=== PATIENT | male | born 1950 | race Caucasian/White ===

== ENCOUNTER 2021-06-06 11:01 | Inpatient (IN) | payer MEDICARE, MEDICAID ==
[~2021-06-06] VITALS: Ht 185.4 cm; Wt 111.1 kg
--- NOTE | 2021-06-06 11:43 | REP ---
INDICATION: R/O DVT COMPARISON: None. TECHNIQUE: Kay scale and color Doppler evaluation using linear high frequency transducer. FINDINGS: Ultrasound examination of the right lower extremity demonstrates thrombus extending from the proximal femoral vein through the popliteal vein and tibioperoneal trunk. The calf veins were not evaluated due to edema. Contralateral CFV is patent and normal. IMPRESSION: Extensive thrombus along the right femoral vein through tibioperoneal trunk. <Electronically signed by Jaziel Iniguez > 06/06/21 [id number]
[2021-06-06 12:46] LABS: BASO # 0.1 10^3/uL (0.0-0.2); BASO % 0.4 % (0.0-1.0); EOS # 0.1 10^3/uL (0.0-0.5); EOS % 0.5 % (0.0-3.0); HEMOGLOBIN 12.2 g/dl (13.5-17.5); LYMPH # 1.2 10^3/uL (1.5-5.0); LYMPH % 8.2 % (24.0-44.0); MEAN CORPUSCULAR HEMOGLOBIN 29.3 pg (27.0-33.0); MEAN CORPUSCULAR HGB CONC 32.1 g/dl (32.0-36.5); MEAN CORPUSCULAR VOLUME 91.1 fl (80.0-96.0); MONO # 0.9 10^3/uL (0.0-0.8); MONO % 6.2 % (2.0-8.0); NEUTROPHILS # 11.5 10^3/uL (1.5-8.5); NEUTROPHILS % 80.2 % (36.0-66.0); PLATELET COUNT, AUTOMATED 286 10^3/uL (150-450); RED BLOOD COUNT 4.17 10^6/uL (4.30-6.10); WHITE BLOOD COUNT 14.3 10^3/uL (4.0-10.0)
[2021-06-06 13:11] LABS: ERYTHROCYTE SEDIMENTATION RATE 83 mm/hr (0-20)
[2021-06-06] MEDS ORDERED: VANCOMYCIN HCL 2,000 MG in D5W 500 ML IV ONE (13:50)
--- NOTE | 2021-06-06 14:12 | REP ---
INDICATION: cough. COMPARISON: None. TECHNIQUE: Semi-erect AP chest x-ray. FINDINGS: Right hemidiaphragm is somewhat elevated. There is platelike atelectasis above it in the right lung base. Lung grider are otherwise clear. There are old healed rib fractures on the left and the right. Cardiomediastinal silhouette is unremarkable. Pulmonary vasculature is somewhat cephalized. The pleural angles are sharp. IMPRESSION: Cephalization. Old healed rib fractures. Elevated right hemidiaphragm and platelike atelectasis right base. <Electronically signed by Ryan Jose > 06/06/21 1930
[2021-06-06] MEDS ORDERED: GLUCAGON INJ 1MG VIAL SC PRN (14:15)
[2021-06-06] MEDS ORDERED: MAALOX 30 ML SUSP *UDC PO PRN (14:15)
[2021-06-06] MEDS ORDERED: DEXTROSE 50% 50 ML SYRINGE IV PRN (14:15)
[2021-06-06] MEDS ORDERED: GLUCOSE 4GM CHEW TABLET PO PRN (14:15)
[2021-06-06] MEDS ORDERED: ACETAMINOPHEN TAB 650MG DOSE (2X325MG) PO PRN (14:15)
[2021-06-06 14:24] LABS: BILIRUBIN,DIRECT 0.2 MG/DL (0.0-0.2); BILIRUBIN,TOTAL 0.4 MG/DL (0.2-1.0); C REACTIVE PROTEIN QUANTITATIV 21.7 MG/DL (0.00-0.30); CALCIUM LEVEL 8.4 MG/DL (8.8-10.2); CREATININE FOR GFR 1.33 MG/DL (0.70-1.30); GLOMERULAR FILTRATION RATE 56.1 (>42); POTASSIUM SERUM 4.1 MEQ/L (3.5-5.1); TOTAL PROTEIN 5.8 GM/DL (6.4-8.2)
[2021-06-06 14:28] LABS: RSV AMPLIFICATION NEGATIVE (NEGATIVE)
[2021-06-06] MEDS ORDERED: VANCOMYCIN HCL 1,000 MG, VIAL MATE ADAPTER 1 EACH in NS 250 ML IV ONE ×6 (14:35)
[2021-06-06] MEDS ORDERED: GUAI600T12 PO (14:56)
[2021-06-06] MEDS ORDERED: FLOM0.4C39 PO (14:56)
[2021-06-06] MEDS ORDERED: ACET-683 PO (14:56)
[2021-06-06] MEDS ORDERED: APAP325T4 PO (14:56)
[2021-06-06] MEDS ORDERED: ATOR1TAB21 PO (14:56)
[2021-06-06] MEDS ORDERED: LEVE1INJ5 SC (14:56)
[2021-06-06] MEDS ORDERED: BISA10SU27 PR (14:56)
[2021-06-06] MEDS ORDERED: DOXY100T PO (14:56)
[2021-06-06] MEDS ORDERED: GLIP1TAB11 PO (14:56)
[2021-06-06] MEDS ORDERED: MILKSUS3 PO (14:56)
[2021-06-06] MEDS ORDERED: OMEP-221 PO (14:56)
[2021-06-06] MEDS ORDERED: INVO300T PO (14:56)
[2021-06-06] MEDS ORDERED: JANU100T PO (14:56)
[2021-06-06] MEDS ORDERED: TRUL0.5I SC (14:56)
[2021-06-06] MEDS ORDERED: LORA-243 PO (14:56)
[2021-06-06] MEDS ORDERED: ASPI81TA26 PO (14:56)
[2021-06-06] MEDS ORDERED: FENO145T7 PO (14:56)
[2021-06-06] MEDS ORDERED: DOCU100C16 PO (14:56)
[2021-06-06] MEDS ORDERED: NAPR220C23 PO (14:56)
[2021-06-06] MEDS ORDERED: NOVOINJ3 SC (14:56)
[2021-06-06] MEDS ORDERED: GABA-1171 PO (14:56)
[2021-06-06] MEDS ORDERED: BISACODYL 10 MG SUPP PR PRN (15:00)
[2021-06-06] MEDS ORDERED: MOM 30ML SUSPENSION UDC PO PRN (15:00)
--- NOTE | 2021-06-06 15:15 | HPEPDOC ---
[facility] Medical History & Physical Date of Admission Jun 06, 2021 Date of Service: Jun 06, 2021 Primary Care Physician: BEVERLY CUNNINGHAM DO Attending Physician: BONI RUIZ DO History and Physical CHIEF COMPLAINT: Right leg swelling and redness HISTORY OF PRESENT ILLNESS: Patient is a 71-year-old male who presented to the emergency department from [facility]. Patient arrived at [facility] yesterday from [facility] in [place], [place]. Patient has been dealing with some right leg swelling and redness that was initially diagnosed with cellulitis. Patient had been on doxycycline which was not helping with the redness. Patient started having a fever last night and the redness started to spread causing concern. Patient was sent to the emergency department in order to work-up possibility of either DVT or cellulitis. Patient was found to have a DVT but also had an elevated white count so the decision was made to admit the patient for overnight observation. PAST MEDICAL HISTORY: 1. Type 2 diabetes mellitus. 2. BPH. 3. Hyperlipidemia. 4. 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 SOCIAL HISTORY: Patient lives now at [facility] intermediate [facility]. Patient used to drink alcohol but no longer does. Patient denies smoking or illicit drug use FAMILY HISTORY: Patient states diabetes runs in his family ALLERGIES: Please see below. REVIEW OF SYSTEMS: General: Patient reports fevers last night HEENT: Patient denies headaches Cardiovascular: Patient denies chest pain Respiratory: Patient denies shortness of breath, cough GI: Patient denies abdominal pain, nausea, vomiting, diarrhea : Patient denies increased frequency or pain with urination Extremities: Patient reports pain, redness, and swelling of the right lower extremity Neurological: Patient denies numbness or tingling in legs Skin: Patient denies any new rashes or lesions. Hematologic: Patient denies any easy bruising. Lymphatic: Patient denies any lumps lumps or bumps in neck, axilla, or groin HOME MEDICATIONS: Please see below. PHYSICAL EXAMINATION: VITAL SIGNS: Temperature 98.6, pulse 85, respiratory rate 19, blood pressure 115/65, pulse oximetry 94% on room air. General: Alert and oriented male patient who was laying on the stretcher when I walked into the room. Patient did not appear to be in any acute distress. HEENT: Normocephalic, atraumatic, moist mucous membranes. Neck: No lymphadenopathy or thyromegaly Cardiac: Regular rate and rhythm, no murmurs, normal S1, normal S2 Pulm: Clear to auscultation bilaterally. No wheezes, rhonchi, rales Abd: Nondistended, nontender to palpation, normal bowel sounds Ext: Redness and swelling present about the right ankle, foot, and to the mid peter. There is heat coming from this redness. Patient does have 2/4 pulses in the dorsalis pedis and posterior tibial pulses bilaterally. This area of redness is tender. Neuro: Patient is able to move all 4 extremities on command. Skin: Area of redness as described above, no other areas of rashes or lesions. LABORATORY DATA: See below. IMAGING: Duplex ultrasound of the lower right extremity was performed on 06/06/2021 is reported to show extensive thrombus along the right femoral vein through the tibioperoneal trunk. A chest x-ray performed on 06/06/2021 is reported to show cephalization, old healed rib fractures, elevated right hemidiaphragm with platelike atelectasis at right base MICROBIOLOGY: Please see below. ASSESSMENT: Patient is a 71-year-old male who presents to the hospital from [facility] with right leg swelling, pain, and redness who was being treated for cellulitis outpatient who had a fever and was found to have a DVT . PLAN: 1. Right lower extremity deep vein thrombosis. It appears that the patient's redness may be secondary to the DVT. Patient was started on Eliquis 10 mg twice daily. Patient does have good pulses on bilateral lower extremities. At this time we will continue to monitor the patient. Patient is not short of breath nor is he tachycardic at this time so do not believe he has a pulmonary embolus I do not believe CT angiogram of the chest is warranted at this time. If the patient does become short of breath, it appears the patient does have chronic kidney disease and we will have to possibly do a VQ scan. 2. Right lower extremity cellulitis. I believe the redness is more likely secondary to the DVT however, patient did have a fever. DVT can cause a fever however, we will start vancomycin with pharmacy to dose at this time. Depending on the patient's clinical response tomorrow, patient may be able to be [facility] with oral antibiotics as well as Eliquis. 3. Type 2 diabetes. Patient will continue his home basal insulin and he will be placed on a sliding scale. 4. Elevated troponin. Patient does not complain of any chest pain and EKG did not show any acute ischemic changes. [id number] troponin in the emergency department was 0.04. I have ordered repeat troponins to be done at 6-hour intervals with repeat EKGs. No old EKG was available for comparison. 5. BPH. We will continue the patient's home medications 6. BLADE/CKD. Patient's creatinine is slightly elevated. We will continue to monitor this. Due to the patient's diabetes he may have chronic kidney disease however, I do not have any previous labs to compare this to. We will avoid nephrotoxic agents at this time. 7. Hyperlipidemia. We will continue to hold medications. 8. DVT prophylaxis: Patient currently has a DVT and will be started on full anticoagulation with Eliquis. 9. CODE STATUS: Patient has a medical orders for life-sustaining treatment form signed for DO NOT RESUSCITATE/DO NOT INTUBATE. Disposition: Patient will be placed under observation on the medical surgical floor for his DVT. Patient could be ready for discharge tomorrow however, since he is a intermediate home patient he will most likely not be able to be discharged until Wednesday. Vital Signs Vital Signs Date Time Temp Pulse Resp B/P (MAP) Pulse Ox O2 Delivery O2 Flow Rate FiO2 06/06/21 11:21 98.6 85 19 115/65 (82) 94 Room Air Laboratory Data Labs 24H Laboratory Tests 2 06/06/21 12:21: Immature Granulocyte % (Auto) 4.5H, Neutrophils (%) (Auto) 80.2H, Lymphocytes (%) (Auto) 8.2L, Monocytes (%) (Auto) 6.2, Eosinophils (%) (Auto) 0.5, Basophils (%) (Auto) 0.4, Neutrophils # (Auto) 11.5H, Lymphocytes # (Auto) 1.2L, Monocytes # (Auto) 0.9H, Eosinophils # (Auto) 0.1, Basophils # (Auto) 0.1, Nucleated Red Blood Cells % (auto) 0.0, Erythrocyte Sedimentation Rate 83H, Lactic Acid Level 1.5 06/06/21 13:30: Anion Gap 9, Glomerular Filtration Rate 56.1, Calcium Level 8.4L, Total Bilirubin 0.4, Direct Bilirubin 0.2, Aspartate Amino Transf (AST/SGOT) 23, Alanine Aminotransferase (ALT/SGPT) 20, Alkaline Phosphatase 65, C-Reactive Protein, Quantitative 21.70H, Total Protein 5.8L, Albumin 2.0L, Albumin/Globulin Ratio 0.5, Coronavirus (COVID-19)(PCR) NEGATIVE, Influenza Type A (RT-PCR) NEGATIVE, Influenza Type B (RT-PCR) NEGATIVE, Respiratory Syncytial Virus (PCR) NEGATIVE 06/06/21 14:31: POC Troponin I (Misc) 0.04 CBC/BMP Laboratory Tests 06/06/21 12:21 06/06/21 13:30 Microbiology Microbiology 06/06/21 Blood Culture, Received Pending 06/06/21 Blood Culture, Received Pending Home Medications Scheduled Acetaminophen (Acetaminophen) 500 Mg Tablet, 1,000 MG PO BID 0800, 1600 Aspirin (Aspirin EC) 81 Mg Tablet.dr, 81 MG PO DAILY Atorvastatin Calcium (Atorvastatin Calcium) 20 Mg Tablet, 20 MG PO QHS Canagliflozin (Invokana) 300 Mg Tablet, 300 MG PO DAILY Docusate Sodium (Docusate Sodium) 100 Mg Capsule, 100 MG PO DAILY Doxycycline Hyclate (Doxycycline Hyclate) 100 Mg Tablet, 100 MG PO BID Dulaglutide (Trulicity) 1.5 Mg/0.5 Ml Pen.injctr, 1.5 MG SC 1XWK TUES Fenofibrate Nanocrystallized (Fenofibrate) 145 Mg Tablet, 145 MG PO DAILY Gabapentin (Gabapentin) 100 Mg Capsule, 100 MG PO QHS Glipizide (Glipizide Xl) 10 Mg Tab.er.24, 10 MG PO BID 0800, 1600 Guaifenesin (Mucus Relief ER) 600 Mg Tab.er.12h, 600 MG PO BID Insulin Aspart (Novolog Flexpen) 100 Unit/1 Ml Insuln.pen, 1 DOSE SC QID 0700, 1100, 1600, 2000 Insulin Detemir (Levemir Flextouch) 100 Unit/1 Ml Insuln.pen, 50 UNIT SC DAILY @ 1700 Insulin Detemir (Levemir Flextouch) 100 Unit/1 Ml Insuln.pen, 60 UNIT SC DAILY Loratadine (Loratadine) 10 Mg Tablet, 10 MG PO DAILY Naproxen Sodium (Naproxen Sodium) 220 Mg Capsule, 220 MG PO DAILY Omeprazole (Omeprazole) 40 Mg Capsule.dr, 40 MG PO DAILY Sitagliptin Phosphate (Januvia) 100 Mg Tablet, 100 MG PO DAILY Tamsulosin HCl (Flomax) 0.4 Mg Capsule, 0.4 MG PO DAILY Scheduled PRN Acetaminophen (Acetaminophen) 325 Mg Tablet, 650 MG PO Q4H PRN for PAIN LEVEL 1- 6 Bisacodyl (Bisacodyl) 10 Mg Supp.rect, 10 MG MT DAILY PRN for CONSTIPATION Magnesium Hydroxide (Milk of Magnesia) 400 Mg/5 Ml Oral.susp, 30 ML PO DAILY PRN for CONSTIPATION Allergies Coded Allergies: No Known Allergies (Verified Allergy, Unknown, 06/06/21) A-FIB/CHADSVASC A-FIB History Current/History of A-Fib/PAF?: No Current PO Anticoag Therapy: Yes BONI RUIZ DO Jun 06, 2021 15:15
[2021-06-06] MEDS: APIXABAN 5 MG TAB (ELIQUIS) PO SCH ×2 (16:38→21:53)
[2021-06-06] MEDS ORDERED: LEVEMIR (INSULIN DETEMIR) 1 UNITS/0.01ML SC SCH (17:00)
[2021-06-06 18:15] VITALS: BP 147/77
[2021-06-06] MEDS: HumaLOG INSULIN (NovoLOG) PER UNIT SC SCH ×2 (19:01→21:00)
[2021-06-06 19:49] VITALS: BP 144/77
[2021-06-06 20:42] LABS: INR 1.49; PROTHROMBIN TIME 18.3 SECONDS (12.5-14.3)
[2021-06-06 20:43] LABS: PARTIAL THROMBOPLASTIN TIME 39.4 SECONDS (24.2-38.5)
[2021-06-06 21:12] LABS: CK-MB VALUE MASS < 1.0 NG/ML (<3.6); CPK CREATINE PHOSPHOKINASE 47 U/L (39-308); MB/CK RELATIVE INDEX 2.13 (< OR =4); TROPONIN I 0.02 NG/ML (< 0.10)
[2021-06-06] MEDS: GABAPENTIN 100 MG CAP PO SCH (21:53)
[2021-06-06] MEDS: guaiFENesin ER 600 MG TAB PO SCH (21:53)
[2021-06-06] MEDS: DOCUSATE SODIUM 100MG CAPSULE PO SCH (21:53)
[2021-06-06] MEDS: ATORVASTATIN 20 MG TAB PO SCH (21:53)
[2021-06-06] MEDS: VANCOMYCIN HCL 1,000 MG, VIAL MATE ADAPTER 1 EACH in NS 250 ML IV SCH (21:54)
[2021-06-06] MEDS: ACETAMINOPHEN 500 MG TAB PO SCH (21:54)
[2021-06-07 02:59] LABS: CK-MB VALUE MASS < 1.0 NG/ML (<3.6); CPK CREATINE PHOSPHOKINASE 35 U/L (39-308); MB/CK RELATIVE INDEX 2.86 (< OR =4); TROPONIN I 0.03 NG/ML (< 0.10)
[2021-06-07 06:16] VITALS: BP 134/68
[2021-06-07 07:05] LABS: HEMATOCRIT 37.4 % (42.0-52.0); HEMOGLOBIN 12.2 g/dl (13.5-17.5); MEAN CORPUSCULAR HEMOGLOBIN 29.5 pg (27.0-33.0); MEAN CORPUSCULAR HGB CONC 32.6 g/dl (32.0-36.5); MEAN CORPUSCULAR VOLUME 90.6 fl (80.0-96.0); PLATELET COUNT, AUTOMATED 301 10^3/uL (150-450); RED BLOOD COUNT 4.13 10^6/uL (4.30-6.10); WHITE BLOOD COUNT 12.4 10^3/uL (4.0-10.0)
[2021-06-07 07:28] LABS: BLOOD UREA NITROGEN 22 MG/DL (7-18); CALCIUM LEVEL 8.1 MG/DL (8.8-10.2); CARBON DIOXIDE LEVEL 28 MEQ/L (21-32); CHLORIDE LEVEL 101 MEQ/L (98-107); CREATININE FOR GFR 1.06 MG/DL (0.70-1.30); GLOMERULAR FILTRATION RATE > 60.0 (>42); GLUCOSE, FASTING 71 MG/DL (70-100); MAGNESIUM LEVEL 2.4 MG/DL (1.8-2.4); POTASSIUM SERUM 3.3 MEQ/L (3.5-5.1); SODIUM LEVEL 137 MEQ/L (136-145)
[2021-06-07] MEDS: HumaLOG INSULIN (NovoLOG) PER UNIT SC SCH ×4 (07:30→21:00)
[2021-06-07] MEDS: TAMSULOSIN 0.4 MG CAP PO SCH (08:21)
[2021-06-07] MEDS: ASPIRIN 81MG ENTERIC TABLET PO SCH (08:21)
[2021-06-07] MEDS: LEVEMIR (INSULIN DETEMIR) 1 UNITS/0.01ML SC SCH ×2 (08:21→17:22)
[2021-06-07] MEDS: FENOFIBRATE 145 MG TAB (TRICOR) PO SCH (08:22)
[2021-06-07] MEDS: ACETAMINOPHEN 500 MG TAB PO SCH ×2 (08:22→22:03)
[2021-06-07] MEDS: guaiFENesin ER 600 MG TAB PO SCH ×2 (08:22→22:02)
[2021-06-07] MEDS: DOCUSATE SODIUM 100MG CAPSULE PO SCH ×2 (08:23→21:00)
[2021-06-07] MEDS: LORATADINE 10 MG TAB PO SCH (08:23)
[2021-06-07] MEDS: APIXABAN 5 MG TAB (ELIQUIS) PO SCH ×2 (08:23→22:02)
[2021-06-07] MEDS: VANCOMYCIN HCL 1,000 MG, VIAL MATE ADAPTER 1 EACH in NS 250 ML IV SCH ×2 (10:19→22:01)
[2021-06-07] MEDS ORDERED: VANCOMYCIN HCL 1,000 MG, VIAL MATE ADAPTER 1 EACH in NS 250 ML IV ONE (11:00)
--- NOTE | 2021-06-07 11:49 | IPNPDOC ---
Text Note Date of Service The patient was seen on 06/07/21. NOTE Subjective: Patient is a 71-year-old male who presented to the emergency depa rtment from [facility] with concern for possible cellulitis. Patient was found to have a DVT and was started on anticoagulation last night. Patient states his ankle has been bothering him and patient does have a wound on that area. Patient states he is otherwise feeling well and was able to eat breakfast earlier today. Review of systems: General: Patient denies fevers HEENT: Patient denies headaches Cardiovascular: Patient denies chest pain Respiratory: Patient denies shortness of breath, cough GI: Patient denies abdominal pain, nausea, vomiting, diarrhea : Patient denies increased frequency or pain with urination Extremities: Patient reports redness and pain in his right lower extremity with a wound on his right medial malleolus Neurological: Patient denies numbness or tingling in legs Physical exam: Vitals: See below General: Alert and oriented male patient who was laying in bed when I walked into the room. Patient had just finished breakfast. Patient not appear to be in any acute distress. HEENT: Normocephalic, atraumatic, moist mucous membranes. Neck: No lymphadenopathy or thyromegaly Cardiac: Regular rate and rhythm, no murmurs, normal S1, normal S2 Pulm: Clear to auscultation bilaterally. No wheezes, rhonchi, rales Abd: Nondistended, nontender to palpation, normal bowel sounds Ext: Swelling and erythema of the right lower extremity up to the level of the mid peter. Patient does have 2 small blisters, one that had spontaneously ruptured and the other one that was still intact on the medial malleolus of the right lower extremity. Left lower extremity did not have any swelling. Labs: See below Imaging: No new imaging has been performed Assessment/plan: 71-year-old male presented to the hospital from [facility] with right leg swelling, pain, and redness was treated for cellulitis outpatient who had fever and was found to have a DVT 1. Right lower extremity deep vein thrombosis. It appears patient redness may be secondary to DVT. Patient was started on Eliquis 10 mg twice daily which will be continued for 7 days before being switched to Eliquis 5 mg twice daily. Patient has good peripheral pulses bilaterally in lower extremities. Patient does not complain of any breathing difficulties at this time so CT angiogram will not be performed at this time. 2. Right lower extremity cellulitis. Patient does have redness of the leg which could be secondary to the DVT however, patient does now have a blistering wound on the medial malleolus. Wound care orders have been placed. Wound should be washed with Vashe for 10 minutes before an OPTi foam dressing should be placed on the area. Because of the new wound, patient will be changed to inpatient status for further monitoring and treatment for both his DVT and cellulitis. 3. Type 2 diabetes. Continue home basal insulin and patient is on sliding scale. 4. Elevated troponin. This was very mildly elevated. Trends did not show an increase. We will continue to monitor the patient clinically but there is no need to continue to monitor the patient's troponin levels. 5. BPH. We will continue his home medications. 6. BLADE/CKD. Patient's creatinine is now back into the normal range and we will continue to monitor. 7. Hyperlipidemia. Continue home medications. DVT Prophylaxis: Patient is on full anticoagulation with Eliquis 10 mg twice daily Disposition: Pending improvement in the patient's leg. Hopeful discharge Wednesday back to [facility]. VS,Onelbone, I+O VS, Estelita, I+O Laboratory Tests 06/06/21 12:21 06/06/21 13:30 06/07/21 06:17 Vital Signs Date Time Temp Pulse Resp B/P (MAP) Pulse Ox O2 Delivery O2 Flow Rate FiO2 06/07/21 06:16 97.0 83 20 134/68 (90) 97 Room Air I&O- Last 24 Hours up to 6 AM 06/07/21 06:00 Intake Total 1120 ml Output Total 900 ml Balance 220 ml BONI RUIZ DO Jun 07, 2021 11:49
[2021-06-07 14:00] VITALS: BP 115/83
--- NOTE | 2021-06-07 17:37 | ECGEPIP ---
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
--- NOTE | 2021-06-07 17:39 | ECGEPIP ---
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
[2021-06-07 22:00] VITALS: BP 155/80
[2021-06-07] MEDS: ATORVASTATIN 20 MG TAB PO SCH (22:02)
[2021-06-07] MEDS: GABAPENTIN 100 MG CAP PO SCH (22:02)
[2021-06-08 06:00] VITALS: BP 140/65
[2021-06-08 07:11] LABS: HEMATOCRIT 36.6 % (42.0-52.0); HEMOGLOBIN 11.9 g/dl (13.5-17.5); MEAN CORPUSCULAR HEMOGLOBIN 29.5 pg (27.0-33.0); MEAN CORPUSCULAR HGB CONC 32.5 g/dl (32.0-36.5); MEAN CORPUSCULAR VOLUME 90.6 fl (80.0-96.0); PLATELET COUNT, AUTOMATED 348 10^3/uL (150-450); RED BLOOD COUNT 4.04 10^6/uL (4.30-6.10)
[2021-06-08] MEDS: HumaLOG INSULIN (NovoLOG) PER UNIT SC SCH ×4 (07:30→20:50)
[2021-06-08 07:31] LABS: BLOOD UREA NITROGEN 18 MG/DL (7-18); CALCIUM LEVEL 8.1 MG/DL (8.8-10.2); CARBON DIOXIDE LEVEL 29 MEQ/L (21-32); CHLORIDE LEVEL 104 MEQ/L (98-107); CREATININE FOR GFR 1.05 MG/DL (0.70-1.30); GLOMERULAR FILTRATION RATE > 60.0 (>42); GLUCOSE, FASTING 69 MG/DL (70-100); MAGNESIUM LEVEL 2.5 MG/DL (1.8-2.4); SODIUM LEVEL 141 MEQ/L (136-145)
[2021-06-08] MEDS: APIXABAN 5 MG TAB (ELIQUIS) PO SCH ×2 (09:06→20:49)
[2021-06-08] MEDS: FENOFIBRATE 145 MG TAB (TRICOR) PO SCH (09:06)
[2021-06-08] MEDS: DOCUSATE SODIUM 100MG CAPSULE PO SCH ×2 (09:06→20:49)
[2021-06-08] MEDS: ASPIRIN 81MG ENTERIC TABLET PO SCH (09:06)
[2021-06-08] MEDS: TAMSULOSIN 0.4 MG CAP PO SCH (09:06)
[2021-06-08] MEDS: ACETAMINOPHEN 500 MG TAB PO SCH ×2 (09:06→20:49)
[2021-06-08] MEDS: LORATADINE 10 MG TAB PO SCH (09:06)
[2021-06-08] MEDS: guaiFENesin ER 600 MG TAB PO SCH ×2 (09:07→20:50)
[2021-06-08] MEDS: LEVEMIR (INSULIN DETEMIR) 1 UNITS/0.01ML SC SCH ×2 (09:07→17:16)
[2021-06-08] MEDS: VANCOMYCIN HCL 1,000 MG, VIAL MATE ADAPTER 1 EACH in NS 250 ML IV SCH ×2 (10:23→21:47)
--- NOTE | 2021-06-08 11:26 | IPNPDOC ---
Text Note Date of Service The patient was seen on 06/08/21. NOTE Subjective: Patient is a 71-year-old male presented the emergency department concern of some ability with concern for possible cellulitis. Patient was found to have DVT was started on anticoagulation. Patient does have a blister on the medial malleolus of his ankle that is still intact. We have covered this with a foam dressing. Patient states he is feeling better. Review of systems: General: Patient denies fevers HEENT: Patient denies headaches Cardiovascular: Patient denies chest pain Respiratory: Patient denies shortness of breath, cough GI: Patient denies abdominal pain, nausea, vomiting, diarrhea : Patient denies increased frequency or pain with urination Extremities: Patient reports pain, swelling, and redness in the right lower extremity with wound on medial malleolus Neurological: Patient denies numbness or tingling in legs Physical exam: Vitals: See below General: Alert and oriented male patient who was laying in bed when I walked in the room. Patient was in no acute distress. HEENT: Normocephalic, atraumatic, moist mucous membranes. Neck: No lymphadenopathy or thyromegaly Cardiac: Regular rate and rhythm, no murmurs, normal S1, normal S2 Pulm: Clear to auscultation bilaterally. No wheezes, rhonchi, rales Abd: Nondistended, nontender to palpation, normal bowel sounds Ext: Swelling and erythema to the right lower extremity up to the level of the mid peter. Patient has a large blister now on the medial malleolus which is still intact that is covered with a foam dressing. No swelling, redness, heat in the left lower extremity. 2/4 posterior tibial and dorsalis pedis pulses bilaterally Labs: See below Imaging: No new imaging has been performed. Assessment/plan: 71-year-old male presented to the hospital from [facility] with right leg swelling, pain, and redness who was treated for cellulitis outpatient who had a fever and was found to have a DVT. 1. Right lower extremity deep vein thrombosis. Redness is most likely from the DVT. Patient was started on Eliquis 10 mg twice daily for 7 days and was switched to Eliquis 5 mg twice daily. Patient has good peripheral pulses. 2. Right lower extremity cellulitis. Patient does have the blister that will be covered with a foam dressing. Initially orders were given to use Vashe but these have since been removed and the wound should just be covered with a foam dressing. Patient was initially on doxycycline and had been switched to vancomycin. Patient received vancomycin today and we switched to something oral to go home tomorrow on. 3. Type 2 diabetes. Continue home basal insulin which need to be decreased overnight as his sugars were lower yesterday morning. Patient sugars are better today. We will continue to monitor. 4. Elevated troponin. This has resolved and no further testing is necessary. 5. BPH. Continue home medications. 6. BLADE/CKD. Patient's creatinine is now within normal range we will continue to monitor. 7. Hyperlipidemia. Continue home medications. DVT Prophylaxis: Full anticoagulation with Eliquis Disposition: Pending clinical improvement, most likely discharge tomorrow. VS,Fishbone, I+O VS, Fishbone, I+O Laboratory Tests 06/08/21 06:11 Vital Signs Date Time Temp Pulse Resp B/P (MAP) Pulse Ox O2 Delivery O2 Flow Rate FiO2 06/08/21 06:00 96.9 82 20 140/65 (90) 96 Room Air I&O- Last 24 Hours up to 6 AM 06/08/21 06:00 Intake Total 2470 ml Output Total 2175 ml Balance 295 ml BONI RUIZ DO Jun 08, 2021 11:26
[2021-06-08] MEDS: NYSTATIN 100,000 UNITS/GM TOPICAL PWD 15 GM TOP SCH ×2 (13:55→20:51)
[2021-06-08 14:00] VITALS: BP 133/59
[2021-06-08 20:20] VITALS: BP 134/66
[2021-06-08] MEDS: GABAPENTIN 100 MG CAP PO SCH (20:49)
[2021-06-08] MEDS: ATORVASTATIN 20 MG TAB PO SCH (20:50)
[2021-06-09 05:57] VITALS: BP 137/59
[2021-06-09 06:55] LABS: HEMATOCRIT 37.3 % (42.0-52.0); HEMOGLOBIN 11.9 g/dl (13.5-17.5); MEAN CORPUSCULAR HEMOGLOBIN 29.2 pg (27.0-33.0); MEAN CORPUSCULAR HGB CONC 31.9 g/dl (32.0-36.5); MEAN CORPUSCULAR VOLUME 91.6 fl (80.0-96.0); PLATELET COUNT, AUTOMATED 360 10^3/uL (150-450); RED BLOOD COUNT 4.07 10^6/uL (4.30-6.10); WHITE BLOOD COUNT 12.6 10^3/uL (4.0-10.0)
[2021-06-09 07:26] LABS: BLOOD UREA NITROGEN 17 MG/DL (7-18); CALCIUM LEVEL 7.9 MG/DL (8.8-10.2); CARBON DIOXIDE LEVEL 28 MEQ/L (21-32); CHLORIDE LEVEL 106 MEQ/L (98-107); CREATININE FOR GFR 0.97 MG/DL (0.70-1.30); GLOMERULAR FILTRATION RATE > 60.0 (>42); GLUCOSE, FASTING 137 MG/DL (70-100); MAGNESIUM LEVEL 2.5 MG/DL (1.8-2.4); POTASSIUM SERUM 4.1 MEQ/L (3.5-5.1); SODIUM LEVEL 141 MEQ/L (136-145)
[2021-06-09] MEDS: HumaLOG INSULIN (NovoLOG) PER UNIT SC SCH ×4 (08:14→20:56)
[2021-06-09] MEDS: FENOFIBRATE 145 MG TAB (TRICOR) PO SCH (08:15)
[2021-06-09] MEDS: LEVEMIR (INSULIN DETEMIR) 1 UNITS/0.01ML SC SCH ×2 (08:15→17:49)
[2021-06-09] MEDS: LORATADINE 10 MG TAB PO SCH (08:15)
[2021-06-09] MEDS: ASPIRIN 81MG ENTERIC TABLET PO SCH (08:15)
[2021-06-09] MEDS: APIXABAN 5 MG TAB (ELIQUIS) PO SCH ×2 (08:15→20:55)
[2021-06-09] MEDS: ACETAMINOPHEN 500 MG TAB PO SCH ×2 (08:15→20:55)
[2021-06-09] MEDS: guaiFENesin ER 600 MG TAB PO SCH ×2 (08:15→20:55)
[2021-06-09] MEDS: DOCUSATE SODIUM 100MG CAPSULE PO SCH ×2 (08:15→20:55)
[2021-06-09] MEDS: TAMSULOSIN 0.4 MG CAP PO SCH (08:15)
[2021-06-09] MEDS: NYSTATIN 100,000 UNITS/GM TOPICAL PWD 15 GM TOP SCH ×2 (08:16→20:56)
[2021-06-09] MEDS ORDERED: ELIQ5TAB PO (10:10)
[2021-06-09] MEDS: BACTRIM 160MG/800MG DS TAB PO SCH ×2 (10:39→20:55)
--- NOTE | 2021-06-09 11:24 | IPNPDOC ---
Text Note Date of Service The patient was seen on 06/09/21. NOTE Subjective:Patient is a 71-year-old male presented to the emergency department for concern for possible cellulitis. Patient was found to have DVT. Patient is feeling better. Patient's leg swelling is getting better. Patient does have a blister on the medial malleolus of the ankle that has drained. Review of systems: General: Patient denies fevers HEENT: Patient denies headaches Cardiovascular: Patient denies chest pain Respiratory: Patient denies shortness of breath, cough GI: Patient denies abdominal pain, nausea, vomiting, diarrhea : Patient denies increased frequency or pain with urination Extremities: Patient reports decreased swelling and pain in the right lower extremity with wound on medial malleolus Neurological: Patient denies numbness or tingling in legs Physical exam: Vitals: See below General: Alert and oriented male patient who was sitting up on the side of the bed about to eat breakfast when I walked in the room. Patient not appear to be in any acute distress. HEENT: Normocephalic, atraumatic, moist mucous membranes. Neck: No lymphadenopathy or thyromegaly Cardiac: Regular rate and rhythm, no murmurs, normal S1, normal S2 Pulm: Clear to auscultation bilaterally. No wheezes, rhonchi, rales Abd: Nondistended, nontender to palpation, normal bowel sounds Ext: Swelling and erythema to the right lower extremity above the level of the mid peter. Patient has a large blister which has spontaneously drained serosangu ineous fluid that is covered by a foam dressing. No swelling redness or heat in the lower extremities. 2/4 posterior tibial and dorsalis pedis pulses bilaterally. Labs: See below Imaging: No new imaging has been performed Assessment/plan: 71-year-old male present to the hospital from [facility] with right leg swelling, pain, and redness who was treated for cellulitis outpatient was found to have a DVT 1. Right lower extremity deep vein thrombosis. Redness is most likely from DVT. Patient was started on Eliquis 10 mg daily for 7 days and will be switched to 5 mg twice daily after this. Patient has good peripheral pulses 2. Right lower extremity cellulitis. Vancomycin has been discontinued and patient placed on Bactrim as he was initially on doxycycline. We will continue to monitor. 3. Type 2 diabetes. Continue basal insulin. Continue to monitor. 4. Elevated troponin at 0.04, this was trended and this is resolved no further testing necessary. 5. BPH. Continue home medications 6. BLADE/CKD. Patient creatinine now within normal range continue to monitor. 7. Hyperlipidemia. Continue home medications DVT Prophylaxis: Full anticoagulation with Eliquis Disposition: Patient is ready for discharge however, his nursing facility is unable to take him today. Patient will be made ALC status. VS,Estelita, I+O VS, Estelita, I+O Laboratory Tests 06/09/21 06:31 Vital Signs Date Time Temp Pulse Resp B/P (MAP) Pulse Ox O2 Delivery O2 Flow Rate FiO2 06/09/21 05:57 98.1 84 20 137/59 (85) 94 Room Air I&O- Last 24 Hours up to 6 AM 06/09/21 06:00 Intake Total 2670 ml Output Total 2425 ml Balance 245 ml BONI RUIZ DO Jun 09, 2021 11:24
[2021-06-09] MEDS: ATORVASTATIN 20 MG TAB PO SCH (20:54)
[2021-06-09] MEDS: GABAPENTIN 100 MG CAP PO SCH (20:55)
[2021-06-10 06:32] LABS: HEMOGLOBIN 11.9 g/dl (13.5-17.5); MEAN CORPUSCULAR HEMOGLOBIN 28.7 pg (27.0-33.0); MEAN CORPUSCULAR HGB CONC 31.3 g/dl (32.0-36.5); MEAN CORPUSCULAR VOLUME 91.8 fl (80.0-96.0); PLATELET COUNT, AUTOMATED 365 10^3/uL (150-450); RED BLOOD COUNT 4.14 10^6/uL (4.30-6.10); WHITE BLOOD COUNT 11.4 10^3/uL (4.0-10.0)
[2021-06-10 07:00] LABS: BLOOD UREA NITROGEN 17 MG/DL (7-18); CALCIUM LEVEL 7.6 MG/DL (8.8-10.2); CARBON DIOXIDE LEVEL 29 MEQ/L (21-32); CHLORIDE LEVEL 105 MEQ/L (98-107); CREATININE FOR GFR 0.96 MG/DL (0.70-1.30); GLOMERULAR FILTRATION RATE > 60.0 (>42); GLUCOSE, FASTING 109 MG/DL (70-100); MAGNESIUM LEVEL 2.5 MG/DL (1.8-2.4); POTASSIUM SERUM 4.3 MEQ/L (3.5-5.1); SODIUM LEVEL 139 MEQ/L (136-145)
[2021-06-10] MEDS: guaiFENesin ER 600 MG TAB PO SCH (08:56)
[2021-06-10] MEDS: LEVEMIR (INSULIN DETEMIR) 1 UNITS/0.01ML SC SCH (08:56)
[2021-06-10] MEDS: DOCUSATE SODIUM 100MG CAPSULE PO SCH (08:56)
[2021-06-10] MEDS: HumaLOG INSULIN (NovoLOG) PER UNIT SC SCH ×2 (08:56→12:53)
[2021-06-10] MEDS: ASPIRIN 81MG ENTERIC TABLET PO SCH (08:57)
[2021-06-10] MEDS: LORATADINE 10 MG TAB PO SCH (08:57)
[2021-06-10] MEDS: APIXABAN 5 MG TAB (ELIQUIS) PO SCH (08:57)
[2021-06-10] MEDS: ACETAMINOPHEN 500 MG TAB PO SCH (08:57)
[2021-06-10] MEDS: FENOFIBRATE 145 MG TAB (TRICOR) PO SCH (08:57)
[2021-06-10] MEDS: NYSTATIN 100,000 UNITS/GM TOPICAL PWD 15 GM TOP SCH (08:57)
[2021-06-10] MEDS: TAMSULOSIN 0.4 MG CAP PO SCH (08:57)
[2021-06-10] MEDS: BACTRIM 160MG/800MG DS TAB PO SCH (08:58)
[2021-06-10 10:18] LABS: RSV AMPLIFICATION NEGATIVE (NEGATIVE)
--- NOTE | 2021-06-10 15:27 | DS.PDOC ---
Discharge Summary General Date of Admission Jun 07, 2021 at 11:43 Date of Discharge 06/10/2021 Primary Care Physician: BEVERLY CUNNINGHAM DO Attending Physician: BONI RUIZ DO Discharge Summary PROCEDURES PERFORMED DURING STAY: None. ADMITTING DIAGNOSES: 1. Right lower extremity deep vein thrombosis. 2. Right lower extremity cellulitis 3. Type 2 diabetes 4. Mild elevation of troponin 5. BPH 6. BLADE/CKD 7. Hyperlipidemia DISCHARGE DIAGNOSES: 1. Right lower extremity deep vein thrombosis. 2. Right lower extremity cellulitis 3. Type 2 diabetes 4. Mild elevation of troponin, resolved 5. BPH 6. BLADE/CKD 7. Hyperlipidemia COMPLICATIONS/CHIEF COMPLAINT: DVT. HISTORY OF PRESENT ILLNESS: Patient is a 71-year-old male who presented to the emergency department from [facility] patient has been dealing with right leg swelling and redness that was initially diagnosed as cellulitis. Patient been on doxycycline which does not help with the redness. Patient developed a fever and was sent to the emergency department. In the emergency department and a duplex ultrasound the right leg revealed a DVT. Patient was admitted for observation due to the DVT, elevated white count and history of fever. HOSPITAL COURSE: Patient's white count did mildly improve. Patient was given Eliquis 10 mg twice daily for a total of 7 days with the plan to then switch the patient to 5 mg twice daily. Patient was on IV vancomycin for 2 days. Patient developed a blister on the medial malleolus. This was covered with a foam dressing. The blister did spontaneously drain serosanguineous fluid and the wound was continue to cover with a OPTi foam dressing. Patient stated that the swelling had gone down and was feeling better. Patient was deemed ready for discharge on 06/10/2021. Patient was discharged back to [facility]. Patient was started on Eliquis 10 mg twice daily on 06/06/2021 with the last day plan to be 06/13/2021. DISCHARGE MEDICATIONS: Please see below. ALLERGIES: Please see below. PHYSICAL EXAMINATION ON DISCHARGE: VITAL SIGNS: Please see below. General: Alert and oriented male patient who was sitting on the side of the bed when I walked in the room. Patient did not appear to be in any acute distress. HEENT: Normocephalic, atraumatic, moist mucous membranes. Neck: No lymphadenopathy or thyromegaly Cardiac: Regular rate and rhythm, no murmurs, normal S1, normal S2 Pulm: Clear to auscultation bilaterally. No wheezes, rhonchi, rales Abd: Nondistended, nontender to palpation, normal bowel sounds Ext: Patient had redness and swelling in the right lower extremity that has slightly improved from the markings that were on his leg. Patient does report some mild tenderness to palpation. Patient has 2/4 dorsalis pedis and posterior tibial pulses bilaterally. No swelling or erythema in the left lower extremity. LABORATORY DATA: Please see below. IMAGING: Duplex ultrasound of the lower right extremity was performed on 06/06/2021 is reported to show extensive thrombus along the right femoral vein through the tibioperoneal trunk. A chest x-ray performed on 06/06/2021 is reported to show cephalization, old healed rib fractures, elevated right hemidiaphragm with platelike atelectasis at right base PROGNOSIS: Good ACTIVITY: As tolerated. DIET: Consistent carbohydrate DISCHARGE PLAN: Discharge to [facility] long-term facility DISPOSITION: [facility]. DISCHARGE INSTRUCTIONS: 1. Follow-up with the primary care provider at [facility]. 2. Keep your right leg elevated when not walking around or eating. 3. Continue to cover the wound with OPTi foam and follow the wound care instructions of your primary care provider ITEMS TO FOLLOWUP ON ON OUTPATIENT: 1. Wound on the medial malleolus. DISCHARGE CONDITION: Stable. TIME SPENT ON DISCHARGE: Greater than 30 minutes. Vital Signs/I&Os Vital Signs Date Time Temp Pulse Resp B/P (MAP) Pulse Ox O2 Delivery O2 Flow Rate FiO2 06/09/21 05:57 98.1 84 20 137/59 (85) 94 Room Air I&O- Last 24 Hours up to 6 AM 06/10/21 06:00 Intake Total 3480 ml Output Total 2125 ml Balance 1355 ml Laboratory Data Labs 24H Laboratory Tests 2 06/10/21 05:58: Nucleated Red Blood Cells % (auto) 0.0, Anion Gap 5L, Glomerular Filtration Rate > 60.0, Calcium Level 7.6L, Magnesium Level 2.5H 06/10/21 09:32: Coronavirus (COVID-19)(PCR) NEGATIVE, Influenza Type A (RT-PCR) NEGATIVE, Influenza Type B (RT-PCR) NEGATIVE, Respiratory Syncytial Virus (PCR) NEGATIVE CBC/BMP Laboratory Tests 06/10/21 05:58 Microbiology Microbiology 06/06/21 Blood Culture - Preliminary, Resulted No Growth after 72 hours. All specime... 06/06/21 Blood Culture - Preliminary, Resulted No Growth after 72 hours. All specime... Discharge Medications Scheduled Acetaminophen (Acetaminophen) 500 Mg Tablet, 1,000 MG PO BID, (Reported) 0800, 1600 Apixaban (Eliquis) 5 Mg Tablet, 10 MG PO BID Aspirin (Aspirin EC) 81 Mg Tablet.dr, 81 MG PO DAILY, (Reported) Atorvastatin Calcium (Atorvastatin Calcium) 20 Mg Tablet, 20 MG PO QHS, (Reported) Canagliflozin (Invokana) 300 Mg Tablet, 300 MG PO DAILY, (Reported) Docusate Sodium (Docusate Sodium) 100 Mg Capsule, 100 MG PO DAILY, (Reported) Doxycycline Hyclate (Doxycycline Hyclate) 100 Mg Tablet, 100 MG PO BID, (Report ed) Dulaglutide (Trulicity) 1.5 Mg/0.5 Ml Pen.injctr, 1.5 MG SC 1XWK, (Reported) ES Fenofibrate Nanocrystallized (Fenofibrate) 145 Mg Tablet, 145 MG PO DAILY, (Reported) Gabapentin (Gabapentin) 100 Mg Capsule, 100 MG PO QHS, (Reported) Glipizide (Glipizide Xl) 10 Mg Tab.er.24, 10 MG PO BID, (Reported) 0800, 1600 Guaifenesin (Mucus Relief ER) 600 Mg Tab.er.12h, 600 MG PO BID, (Reported) Insulin Aspart (Novolog Flexpen) 100 Unit/1 Ml Insuln.pen, 1 DOSE SC QID, (Reported) 0700, 1100, 1600, 2000 Insulin Detemir (Levemir Flextouch) 100 Unit/1 Ml Insuln.pen, 50 UNIT SC DAILY, (Reported) @ 1700 Insulin Detemir (Levemir Flextouch) 100 Unit/1 Ml Insuln.pen, 60 UNIT SC DAILY, (Reported) Loratadine (Loratadine) 10 Mg Tablet, 10 MG PO DAILY, (Reported) Naproxen Sodium (Naproxen Sodium) 220 Mg Capsule, 220 MG PO DAILY, (Reported) Omeprazole (Omeprazole) 40 Mg Capsule.dr, 40 MG PO DAILY, (Reported) Sitagliptin Phosphate (Januvia) 100 Mg Tablet, 100 MG PO DAILY, (Reported) Tamsulosin HCl (Flomax) 0.4 Mg Capsule, 0.4 MG PO DAILY, (Reported) Scheduled PRN Acetaminophen (Acetaminophen) 325 Mg Tablet, 650 MG PO Q4H PRN for PAIN LEVEL 1- 6, (Reported) Bisacodyl (Bisacodyl) 10 Mg Supp.rect, 10 MG VA DAILY PRN for CONSTIPATION, (Reported) Magnesium Hydroxide (Milk of Magnesia) 400 Mg/5 Ml Oral.susp, 30 ML PO DAILY PRN for CONSTIPATION, (Reported) Allergies Coded Allergies: No Known Allergies (Verified Allergy, Unknown, 06/06/21) BONI RUIZ DO Jun 10, 2021 15:27
[2021-06-12 12:26] LABS: ANTI THROMBIN 3 ANTIGEN IMMUNO 79 % (72-124); ANTI THROMBIN 3 FUNCT ACTIVITY 137 % (75-135); CARDIOLIPIN IGA ANTIBODY <9 APL U/mL (0-11); CARDIOLIPIN IGG ANTIBODY <9 GPL U/mL (0-14); CARDIOLIPIN IGM ANTIBODY <9 MPL U/mL (0-12); PHOSPHOLIPIDS LEVEL 143 mg/dL (150-250); PROTEIN C FUNCTIONAL ACTIVITY 141 % (73-180); PROTEIN S FUNCTIONAL ACTIVITY 73 % (63-140)
[2021-06-12 13:43] LABS: DRVV SCREEN 162.1 SEC
[2021-06-12 13:44] LABS: PTT LUPUS TYPE ANTICOAG SCREEN 4.2 (0-1.2)
[2021-06-12 13:52] LABS: DRVV CONFIRM 126.1 SEC; LUPUS CONFIRM RATIO 3.5; NORMALIZED RATIO 1.2 (0.00-1.20)
== END 2021-06-10 14:45 | DRG 300 ==
LOC: M ED 11:01 → EDBD 11:01 → M ED INP 11:02 → ENRESERV 16:30 → M MS5PR 17:10 → OBSVTOIN 06-07 11:43
PROVIDERS: ADMIT Family Medicine; ATTEND Family Medicine
DX: I82.411 Acute embolism and thrombosis of right femoral vein (principal); L03.115 Cellulitis of right lower limb; N17.9 Acute kidney failure, unspecified; E11.9 Type 2 diabetes mellitus without complications; N40.0 Benign prostatic hyperplasia without lower urinary tract symptoms; E78.5 Hyperlipidemia, unspecified; Z79.899 Other long term (current) drug therapy; Z79.82 Long term (current) use of aspirin; Z79.4 Long term (current) use of insulin; Z66 Do not resuscitate

== ENCOUNTER → 2021-06-06 | Outpatient (REF) | payer MEDICARE, MEDICAID ==
[~2021-06-06] MED LIST: ACET-683 PO; APAP325T4 PO; ASPI81TA26 PO; ATOR1TAB21 PO; BISA10SU27 PR; DOCU100C16 PO; DOXY100T PO; ELIQ5TAB PO; FENO145T7 PO; FLOM0.4C39 PO; GABA-1171 PO; GLIP1TAB11 PO; GUAI600T12 PO; INVO300T PO; JANU100T PO; LEVE1INJ5 SC; LORA-243 PO; MILKSUS3 PO; NAPR220C23 PO; NOVOINJ3 SC; OMEP-221 PO; TRUL0.5I SC
== END ==
PROVIDERS: ATTEND Internal Medicine
DX: Z86.718 Personal history of other venous thrombosis and embolism (principal); Z53.8 Procedure and treatment not carried out for other reasons

== ENCOUNTER 2021-06-11 17:29 | Emergency (ER) | payer MEDICARE, MEDICAID ==
[~2021-06-11] VITALS: Ht 165.1 cm; Wt 90.3 kg
[2021-06-11 17:51] VITALS: BP 108/57
[2021-06-11 18:46] LABS: BASO # 0.1 10^3/uL (0.0-0.2); BASO % 0.7 % (0.0-1.0); EOS # 0.2 10^3/uL (0.0-0.5); EOS % 2.2 % (0.0-3.0); HEMATOCRIT 38.4 % (42.0-52.0); HEMOGLOBIN 12.3 g/dl (13.5-17.5); LYMPH % 10.4 % (24.0-44.0); MEAN CORPUSCULAR HEMOGLOBIN 29.4 pg (27.0-33.0); MEAN CORPUSCULAR VOLUME 91.6 fl (80.0-96.0); MONO # 0.7 10^3/uL (0.0-0.8); MONO % 7.4 % (2.0-8.0); NEUTROPHILS # 7.4 10^3/uL (1.5-8.5); NEUTROPHILS % 76.1 % (36.0-66.0); PLATELET COUNT, AUTOMATED 423 10^3/uL (150-450); RED BLOOD COUNT 4.19 10^6/uL (4.30-6.10); WHITE BLOOD COUNT 9.7 10^3/uL (4.0-10.0)
[2021-06-11 19:15] LABS: ERYTHROCYTE SEDIMENTATION RATE 89 mm/hr (0-20)
[2021-06-11 19:18] LABS: ALBUMIN 2.2 GM/DL (3.2-5.2); BILIRUBIN,DIRECT 0.1 MG/DL (0.0-0.2); BILIRUBIN,TOTAL 0.2 MG/DL (0.2-1.0); C REACTIVE PROTEIN QUANTITATIV 8.15 MG/DL (0.00-0.30); CALCIUM LEVEL 8.4 MG/DL (8.8-10.2); CREATININE FOR GFR 1.55 MG/DL (0.70-1.30); POTASSIUM SERUM 4.3 MEQ/L (3.5-5.1); TOTAL PROTEIN 6.7 GM/DL (6.4-8.2)
== END 2021-06-11 21:54 | disposition home or self-care (01) ==
LOC: M ED 17:29 → EDBD 17:29 → M ED 21:54
DX: L03.115 Cellulitis of right lower limb (principal); E11.9 Type 2 diabetes mellitus without complications; N40.0 Benign prostatic hyperplasia without lower urinary tract symptoms; F41.9 Anxiety disorder, unspecified; F33.9 Major depressive disorder, recurrent, unspecified; M25.471 Effusion, right ankle; Z79.01 Long term (current) use of anticoagulants; Z79.82 Long term (current) use of aspirin; Z79.899 Other long term (current) drug therapy; Z79.4 Long term (current) use of insulin

== ENCOUNTER → 2021-06-11 | Outpatient (REF) | payer MEDICARE, MEDICAID | PROVIDERS: ATTEND Internal Medicine | DX: Z53.8 Procedure and treatment not carried out for other reasons (principal) ==

== ENCOUNTER → 2021-06-11 | Outpatient (REF) | payer MEDICARE, MEDICAID ==
[2021-06-11 10:18] LABS: HEMATOCRIT 39.7 % (42.0-52.0); HEMOGLOBIN 12.5 g/dl (13.5-17.5); MEAN CORPUSCULAR HEMOGLOBIN 28.9 pg (27.0-33.0); MEAN CORPUSCULAR HGB CONC 31.5 g/dl (32.0-36.5); MEAN CORPUSCULAR VOLUME 91.9 fl (80.0-96.0); PLATELET COUNT, AUTOMATED 441 10^3/uL (150-450); RED BLOOD COUNT 4.32 10^6/uL (4.30-6.10); WHITE BLOOD COUNT 10.1 10^3/uL (4.0-10.0)
[2021-06-11 10:44] LABS: C REACTIVE PROTEIN QUANTITATIV 8.67 MG/DL (0.00-0.30); CALCIUM LEVEL 8.1 MG/DL (8.8-10.2); CREATININE FOR GFR 1.31 MG/DL (0.70-1.30); GLOMERULAR FILTRATION RATE 57.1 (>42); POTASSIUM SERUM 4.6 MEQ/L (3.5-5.1)
[2021-06-11 10:48] LABS: ERYTHROCYTE SEDIMENTATION RATE 73 mm/hr (0-20)
== END ==
PROVIDERS: ATTEND Internal Medicine
DX: R22.41 Localized swelling, mass and lump, right lower limb (principal)

== ENCOUNTER → 2021-06-11 | Outpatient (CLI) | payer MEDICARE, MEDICAID ==
--- NOTE | 2021-06-11 15:44 | REP ---
INDICATION: RIGHT ANKLE SWELLING- IN THE CT AREA. Ankle swelling with open wound. Osteomyelitis. COMPARISON: No comparison study.. TECHNIQUE: Axial, coronal, and sagittal imaging planes utilized. T1 and T2 weighted scans are obtained in the usual fashion with without fat saturation. FINDINGS: There is a bandage dressing applied to the medial skin at the level of the medial malleolus. In this region there is a focal area of deficient dermis and underlying this is an edematous or indurated area. There is also soft tissue edema in the extra articular soft tissues laterally and to a lesser extent circumferentially anteriorly. There is diffuse a skin thickening on T1 weighted scans. There is a T2 hyperintense possible fluid collection coursing over the medial malleolus extending posteriorly and to a lesser extent anteriorly. I cannot exclude a developing abscess versus phlegmon here. The largest component of this is posterior to the medial malleolus measuring 1.7 x 1.2 x 2.4 cm. There is some fluid or similar induration lateral to the distal fibula as well above the level of the ankle. Cortical and medullary bone signal intensity are normal on T1 and T2 weighted scans. Accordingly, there is no evidence of osteomyelitis. There is plantar and Achilles calcaneal spurring. There is some increased signal intensity diffusely in the Achilles tendon consistent with Achilles tendinosis. There is subcortical cyst formation in the anterior calcaneus and in the cuboid consistent with some midfoot osteoarthritis. No extensor or flexor tendinopathy is appreciated. IMPRESSION: Diffuse dermal thickening and diffuse subcutaneous edema. There are ill-defined areas of subcutaneous fluid or phlegmonous reaction adjacent to the medial malleolus and lateral to the distal fibula as described above. I cannot exclude developing abscess. There is a evidence of a small focal defect in the skin at the medial malleolus which may reflect the wound. There is an overlying dressing. However, there is no abnormal bone signal intensity to suggest osteomyelitis. <Electronically signed by Ryan Jose > 06/11/21 [id number]
== END ==
LOC: M RAD 14:24
PROVIDERS: ATTEND Physician Assistant
DX: M25.471 Effusion, right ankle (principal)

== ENCOUNTER → 2021-06-18 | Outpatient (REF) | payer MEDICARE, MEDICAID ==
[2021-06-18 13:00] LABS: HEMATOCRIT 40.4 % (42.0-52.0); HEMOGLOBIN 13.3 g/dl (13.5-17.5); MEAN CORPUSCULAR HEMOGLOBIN 29.4 pg (27.0-33.0); MEAN CORPUSCULAR HGB CONC 32.9 g/dl (32.0-36.5); MEAN CORPUSCULAR VOLUME 89.4 fl (80.0-96.0); PLATELET COUNT, AUTOMATED 354 10^3/uL (150-450); RED BLOOD COUNT 4.52 10^6/uL (4.30-6.10); WHITE BLOOD COUNT 11.3 10^3/uL (4.0-10.0)
[2021-06-18 13:22] LABS: HEMOGLOBIN A1c 9.5 %
[2021-06-18 13:28] LABS: ERYTHROCYTE SEDIMENTATION RATE 63 mm/hr (0-20)
[2021-06-18 13:32] LABS: C REACTIVE PROTEIN QUANTITATIV 8.2 MG/DL (0.00-0.30); CALCIUM LEVEL 8.4 MG/DL (8.8-10.2); CREATININE FOR GFR 1.56 MG/DL (0.70-1.30); GLOMERULAR FILTRATION RATE 46.7 (>42); POTASSIUM SERUM 4.9 MEQ/L (3.5-5.1)
== END ==
PROVIDERS: ATTEND Physician Assistant
DX: N17.9 Acute kidney failure, unspecified (principal); E11.9 Type 2 diabetes mellitus without complications; Z79.899 Other long term (current) drug therapy

== ENCOUNTER → 2021-06-19 | Outpatient (REF) | payer MEDICARE, MEDICAID ==
[2021-06-19 15:48] LABS: CALCIUM LEVEL 7.9 MG/DL (8.8-10.2); CREATININE FOR GFR 1.47 MG/DL (0.70-1.30); POTASSIUM SERUM 4.1 MEQ/L (3.5-5.1)
== END ==
PROVIDERS: ATTEND Internal Medicine
DX: N17.9 Acute kidney failure, unspecified (principal)

== ENCOUNTER → 2021-07-02 | Outpatient (REF) | payer MEDICARE, MEDICAID | PROVIDERS: ATTEND Physician Assistant | DX: Z53.8 Procedure and treatment not carried out for other reasons (principal) ==

== ENCOUNTER → 2021-07-14 | Outpatient (CLI) | payer MEDICARE, MEDICAID ==
--- NOTE | 2021-07-14 13:06 | REP ---
INDICATION: N. Cellulitis. COMPARISON: Comparison MRI findings June 11, 2021.. TECHNIQUE: AP and lateral views of the right ankle are provided. FINDINGS: There is diffuse soft tissue swelling obscuring and thickening the region of the Achilles tendon. Anterior subcutaneous soft tissue swelling is also noted. There is an accessory ossicle lateral to the talus. Ankle mortise is intact. No fracture is seen. A large plantar calcaneal spur is noted. There is mild midfoot osteoarthritic spurring. No soft tissue gas or acute bony erosive changes seen. IMPRESSION: No soft tissue gas or acute bony erosive change. Plantar heel spur and some osteoarthritic changes. <Electronically signed by Ryan Jose > 07/14/21 [id number]
== END ==
PROVIDERS: ATTEND Internal Medicine
DX: M19.071 Primary osteoarthritis, right ankle and foot (principal)

== ENCOUNTER → 2021-07-14 | Outpatient (REF) | payer MEDICARE, MEDICAID ==
[2021-07-14 11:16] LABS: HEMATOCRIT 44.7 % (42.0-52.0); HEMOGLOBIN 14.1 g/dl (13.5-17.5); MEAN CORPUSCULAR HEMOGLOBIN 29.6 pg (27.0-33.0); MEAN CORPUSCULAR HGB CONC 31.5 g/dl (32.0-36.5); MEAN CORPUSCULAR VOLUME 93.7 fl (80.0-96.0); PLATELET COUNT, AUTOMATED 284 10^3/uL (150-450); RED BLOOD COUNT 4.77 10^6/uL (4.30-6.10); WHITE BLOOD COUNT 6.3 10^3/uL (4.0-10.0)
[2021-07-14 11:18] LABS: BLOOD UREA NITROGEN 18 MG/DL (7-18); CALCIUM LEVEL 9.6 MG/DL (8.8-10.2); CARBON DIOXIDE LEVEL 28 MEQ/L (21-32); CHLORIDE LEVEL 101 MEQ/L (98-107); CREATININE FOR GFR 1.07 MG/DL (0.70-1.30); GLOMERULAR FILTRATION RATE > 60.0 (>42); GLUCOSE, FASTING 196 MG/DL (70-100); SODIUM LEVEL 137 MEQ/L (136-145)
[2021-07-14 14:02] LABS: HEMOGLOBIN A1c 9.4 %
== END ==
PROVIDERS: ATTEND Internal Medicine
DX: E11.9 Type 2 diabetes mellitus without complications (principal); M19.071 Primary osteoarthritis, right ankle and foot

== ENCOUNTER → 2021-07-30 | Outpatient (REF) | payer MEDICARE, MEDICAID ==
[2021-07-30 11:03] LABS: HEMOGLOBIN 13.2 g/dl (13.5-17.5); MEAN CORPUSCULAR HEMOGLOBIN 29.3 pg (27.0-33.0); MEAN CORPUSCULAR HGB CONC 31.4 g/dl (32.0-36.5); MEAN CORPUSCULAR VOLUME 93.1 fl (80.0-96.0); PLATELET COUNT, AUTOMATED 233 10^3/uL (150-450); RED BLOOD COUNT 4.51 10^6/uL (4.30-6.10)
[2021-07-30 11:34] LABS: BLOOD UREA NITROGEN 23 MG/DL (7-18); CALCIUM LEVEL 8.5 MG/DL (8.8-10.2); CARBON DIOXIDE LEVEL 28 MEQ/L (21-32); CHLORIDE LEVEL 105 MEQ/L (98-107); CREATININE FOR GFR 1.18 MG/DL (0.70-1.30); GLOMERULAR FILTRATION RATE > 60.0 (>42); GLUCOSE, FASTING 237 MG/DL (70-100); POTASSIUM SERUM 3.8 MEQ/L (3.5-5.1); SODIUM LEVEL 138 MEQ/L (136-145)
== END ==
PROVIDERS: ATTEND Physician Assistant
DX: I82.409 Acute embolism and thrombosis of unspecified deep veins of unspecified lower extremity (principal)

== ENCOUNTER → 2021-09-03 | Outpatient (REF) | payer MEDICARE, MEDICAID ==
[2021-09-03 11:08] LABS: HEMATOCRIT 42.1 % (42.0-52.0); HEMOGLOBIN 13.6 g/dl (13.5-17.5); MEAN CORPUSCULAR HGB CONC 32.3 g/dl (32.0-36.5); MEAN CORPUSCULAR VOLUME 89.8 fl (80.0-96.0); PLATELET COUNT, AUTOMATED 238 10^3/uL (150-450); RED BLOOD COUNT 4.69 10^6/uL (4.30-6.10); WHITE BLOOD COUNT 7.9 10^3/uL (4.0-10.0)
[2021-09-03 12:31] LABS: BLOOD UREA NITROGEN 21 MG/DL (7-18); CALCIUM LEVEL 9.1 MG/DL (8.8-10.2); CARBON DIOXIDE LEVEL 28 MEQ/L (21-32); CHLORIDE LEVEL 107 MEQ/L (98-107); CREATININE FOR GFR 1.19 MG/DL (0.70-1.30); GLOMERULAR FILTRATION RATE > 60.0 (>42); GLUCOSE, FASTING 139 MG/DL (70-100); SODIUM LEVEL 139 MEQ/L (136-145)
== END ==
PROVIDERS: ATTEND Physician Assistant
DX: I82.409 Acute embolism and thrombosis of unspecified deep veins of unspecified lower extremity (principal)

== ENCOUNTER → 2021-09-04 | Outpatient (REF) | payer MEDICARE, MEDICAID ==
[2021-09-04 15:28] LABS: HEMATOCRIT 44.2 % (42.0-52.0); HEMOGLOBIN 13.9 g/dl (13.5-17.5); MEAN CORPUSCULAR HEMOGLOBIN 28.8 pg (27.0-33.0); MEAN CORPUSCULAR HGB CONC 31.4 g/dl (32.0-36.5); MEAN CORPUSCULAR VOLUME 91.7 fl (80.0-96.0); PLATELET COUNT, AUTOMATED 246 10^3/uL (150-450); RED BLOOD COUNT 4.82 10^6/uL (4.30-6.10); WHITE BLOOD COUNT 6.9 10^3/uL (4.0-10.0)
[2021-09-04 16:12] LABS: BLOOD UREA NITROGEN 21 MG/DL (7-18); CARBON DIOXIDE LEVEL 27 MEQ/L (21-32); CHLORIDE LEVEL 105 MEQ/L (98-107); CREATININE FOR GFR 1.14 MG/DL (0.70-1.30); GLOMERULAR FILTRATION RATE > 60.0 (>42); GLUCOSE, FASTING 139 MG/DL (70-100); POTASSIUM SERUM 4.1 MEQ/L (3.5-5.1); SODIUM LEVEL 140 MEQ/L (136-145)
[2021-09-05 02:02] LABS: HEMOGLOBIN A1c 8.6 %
== END ==
PROVIDERS: ATTEND Internal Medicine
DX: E11.9 Type 2 diabetes mellitus without complications (principal)

== ENCOUNTER → 2021-10-01 | Outpatient (REF) | payer MEDICARE, MEDICAID ==
[~2021-10-01] MED LIST changes: -OMEP-221 PO; +OMEP40CA5 PO
[2021-10-01 12:35] LABS: HEMATOCRIT 43.5 % (42.0-52.0); HEMOGLOBIN 13.9 g/dl (13.5-17.5); MEAN CORPUSCULAR HEMOGLOBIN 28.6 pg (27.0-33.0); MEAN CORPUSCULAR VOLUME 89.5 fl (80.0-96.0); PLATELET COUNT, AUTOMATED 234 10^3/uL (150-450); RED BLOOD COUNT 4.86 10^6/uL (4.30-6.10); WHITE BLOOD COUNT 7.5 10^3/uL (4.0-10.0)
[2021-10-01 13:06] LABS: CALCIUM LEVEL 9.4 MG/DL (8.8-10.2); CREATININE FOR GFR 1.38 MG/DL (0.70-1.30); GLOMERULAR FILTRATION RATE 53.8 (>42)
== END ==
PROVIDERS: ATTEND Internal Medicine
DX: E11.9 Type 2 diabetes mellitus without complications (principal)

== ENCOUNTER → 2021-10-07 | Outpatient (REF) | payer MEDICARE, MEDICAID ==
[~2021-10-07] MED LIST changes: +OMEP-221 PO; -OMEP40CA5 PO
== END ==
PROVIDERS: ATTEND Internal Medicine
DX: Z20.822 Contact with and (suspected) exposure to COVID-19 (principal)
CPT/HCPCS: G0463; U0002

== ENCOUNTER → 2021-11-12 | Outpatient (REF) | payer MEDICARE, MEDICAID ==
[2021-11-12 18:04] LABS: BASO % 0.5 % (0.0-1.0); EOS # 0.3 10^3/uL (0.0-0.5); EOS % 3.6 % (0.0-3.0); HEMOGLOBIN 14.7 g/dl (13.5-17.5); LYMPH # 1.8 10^3/uL (1.5-5.0); LYMPH % 22.7 % (24.0-44.0); MEAN CORPUSCULAR HEMOGLOBIN 28.6 pg (27.0-33.0); MEAN CORPUSCULAR HGB CONC 32.7 g/dl (32.0-36.5); MEAN CORPUSCULAR VOLUME 87.5 fl (80.0-96.0); MONO # 0.7 10^3/uL (0.0-0.8); MONO % 8.3 % (2.0-8.0); NEUTROPHILS # 5.1 10^3/uL (1.5-8.5); NEUTROPHILS % 64.3 % (36.0-66.0); PLATELET COUNT, AUTOMATED 258 10^3/uL (150-450); RED BLOOD COUNT 5.14 10^6/uL (4.30-6.10)
[2021-11-12 18:23] LABS: HEMOGLOBIN A1c 8.5 %
[2021-11-12 18:28] LABS: ALBUMIN 3.6 GM/DL (3.2-5.2); ALT/SGPT 26 U/L (12-78); BILIRUBIN,TOTAL 0.2 MG/DL (0.2-1.0); BLOOD UREA NITROGEN 30 MG/DL (7-18); CALCIUM LEVEL 9.5 MG/DL (8.8-10.2); CARBON DIOXIDE LEVEL 28 MEQ/L (21-32); CHLORIDE LEVEL 105 MEQ/L (98-107); CHOLESTEROL LEVEL 160 MG/DL (<200); CHOLESTEROL RISK RATIO 5.517 (<5); CREATININE FOR GFR 1.17 MG/DL (0.70-1.30); FREE T4 1.04 NG/DL (0.76-1.46); GLOMERULAR FILTRATION RATE > 60.0 (>42); GLUCOSE, FASTING 130 MG/DL (70-100); HDL CHOLESTEROL 29 MG/DL (>40); LDL CHOLESTEROL 73 MG/DL (<100); NON-HDL-C 131 MG/DL; POTASSIUM SERUM 4.3 MEQ/L (3.5-5.1); SODIUM LEVEL 139 MEQ/L (136-145); TOTAL PROTEIN 7.1 GM/DL (6.4-8.2); TRIGLYCERIDES LEVEL 292 MG/DL (<150)
[2021-11-12 18:31] LABS: TOTAL 25(OH) VITAMIN D 18.4 NG/ML (30.0-100.0); VITAMIN B12 LEVEL 364 PG/ML
[2021-11-12 18:32] LABS: FOLATE 8.4 NG/ML
== END ==
LOC: M SFHCADAM 14:33
PROVIDERS: ATTEND Physician Assistant
DX: E11.40 Type 2 diabetes mellitus with diabetic neuropathy, unspecified (principal); E78.2 Mixed hyperlipidemia; I82.501 Chronic embolism and thrombosis of unspecified deep veins of right lower extremity; D68.51 Activated protein C resistance; Z79.4 Long term (current) use of insulin
CPT/HCPCS: 80053; 80061; 82306; 82607; 82746; 83036; 84439; 84443; 85025; G0463

== ENCOUNTER → 2022-02-05 | Outpatient (REF) | payer MEDICARE, MEDICAID ==
[~2022-02-05] MED LIST changes: -OMEP-221 PO; +OMEP40CA5 PO
[2022-02-05 17:11] LABS: BLOOD UREA NITROGEN 24 MG/DL (7-18); CALCIUM LEVEL 9.3 MG/DL (8.8-10.2); CARBON DIOXIDE LEVEL 30 MEQ/L (21-32); CHLORIDE LEVEL 106 MEQ/L (98-107); CREATININE FOR GFR 1.24 MG/DL (0.70-1.30); GLOMERULAR FILTRATION RATE > 60.0 (>42); GLUCOSE, FASTING 206 MG/DL (70-100); POTASSIUM SERUM 4.5 MEQ/L (3.5-5.1); SODIUM LEVEL 140 MEQ/L (136-145)
[2022-02-05 17:35] LABS: HEMOGLOBIN A1c 9.1 %
== END ==
LOC: M SFHCADAM 12:08
PROVIDERS: ATTEND Physician Assistant
DX: E55.9 Vitamin D deficiency, unspecified (principal); E11.40 Type 2 diabetes mellitus with diabetic neuropathy, unspecified; Z12.5 Encounter for screening for malignant neoplasm of prostate

== ENCOUNTER → 2022-02-16 | Outpatient (REF) | payer MEDICARE, MEDICAID ==
[2022-02-16 14:53] LABS: HEMOGLOBIN A1c 9.3 %
== END ==
PROVIDERS: ATTEND Physician Assistant
DX: E11.621 Type 2 diabetes mellitus with foot ulcer (principal)

== ENCOUNTER → 2022-04-24 | Outpatient (REF) | payer MEDICARE, MEDICAID | PROVIDERS: ATTEND Family Medicine | DX: Z20.822 Contact with and (suspected) exposure to COVID-19 (principal) ==

== ENCOUNTER → 2022-06-19 | Outpatient (REF) | payer MEDICARE, MEDICAID ==
[2022-06-19 18:08] LABS: CALCIUM LEVEL 9.2 MG/DL (8.8-10.2); CREATININE FOR GFR 1.26 MG/DL (0.70-1.30); GLOMERULAR FILTRATION RATE 59.6 (>42); POTASSIUM SERUM 4.5 MEQ/L (3.5-5.1)
[2022-06-19 19:35] LABS: HEMOGLOBIN A1c 9.7 %
== END ==
LOC: M SFHCADAM 14:57
PROVIDERS: ATTEND Physician Assistant
DX: E11.41 Type 2 diabetes mellitus with diabetic mononeuropathy (principal)

== ENCOUNTER → 2022-08-20 | Outpatient (REF) | payer MEDICARE, MEDICAID | PROVIDERS: ATTEND Family Medicine | DX: J34.89 Other specified disorders of nose and nasal sinuses (principal) ==

== ENCOUNTER → 2022-09-17 | Outpatient (REF) | payer MEDICARE, MEDICAID ==
[2022-09-18 13:33] LABS: HEMATOCRIT 45.6 % (42.0-52.0); HEMOGLOBIN 14.3 g/dl (13.5-17.5); MEAN CORPUSCULAR HEMOGLOBIN 29.2 pg (27.0-33.0); MEAN CORPUSCULAR HGB CONC 31.4 g/dl (32.0-36.5); MEAN CORPUSCULAR VOLUME 93.3 fl (80.0-96.0); PLATELET COUNT, AUTOMATED 256 10^3/uL (150-450); RED BLOOD COUNT 4.89 10^6/uL (4.30-6.10); WHITE BLOOD COUNT 6.8 10^3/uL (4.0-10.0)
[2022-09-18 14:12] LABS: ALBUMIN 3.5 GM/DL (3.2-5.2); BILIRUBIN,TOTAL 0.2 MG/DL (0.2-1.0); CALCIUM LEVEL 9.4 MG/DL (8.8-10.2); CHOLESTEROL RISK RATIO 4.47 (<5); CREATININE FOR GFR 1.35 MG/DL (0.70-1.30); POTASSIUM SERUM 5.7 MEQ/L (3.5-5.1); TOTAL PROTEIN 6.9 GM/DL (6.4-8.2)
[2022-09-18 14:53] LABS: HEMOGLOBIN A1c 8.5 %
== END ==
LOC: M SFHCADAM 15:26
PROVIDERS: ATTEND Physician Assistant
DX: E11.65 Type 2 diabetes mellitus with hyperglycemia (principal); E11.41 Type 2 diabetes mellitus with diabetic mononeuropathy; E11.621 Type 2 diabetes mellitus with foot ulcer; I82.501 Chronic embolism and thrombosis of unspecified deep veins of right lower extremity; E55.9 Vitamin D deficiency, unspecified; E78.2 Mixed hyperlipidemia

== ENCOUNTER → 2022-11-10 | Outpatient (REF) | payer MEDICARE, MEDICAID ==
[~2022-11-10] MED LIST changes: +DRIS50003 PO; +MENT250L TP; +TRES1INJ2 SC
== END ==
PROVIDERS: ATTEND Family Medicine
DX: Z01.818 Encounter for other preprocedural examination (principal); Z20.822 Contact with and (suspected) exposure to COVID-19

== ENCOUNTER 2022-11-11 07:30 | Day surgery (SDC) | payer MEDICARE, MEDICAID ==
[~2022-11-11] VITALS: Ht 165.1 cm; Wt 114.3 kg
[~2022-11-11 07:30] MED LIST changes: +BSS IRRIG/VANCO(10MG)/TOBRA(5MG)/EPINEPH(1:1000-0.5CC)500ML BAG-ORONLY IR ONE; +CEFUROXIME 1MG/0.1ML INTRACAMERAL INJ As Ordered ONE; +CYCLOPENTOLATE 1% OPHTH SOLN 2ML BTL OS SCH; +LIDOCAINE 1% 1ML PF SYRINGE (OR EYE CASES) As Ordered ONE; +LIDOCAINE 3.5 % 1ML OPHTH TOPICAL GEL OU ONE; +OFLOXACIN 0.3 % (OCUFLOX) OPTH SOL 5ML OS ONE; +PHENYLEPHRINE 10% OPHTH SOL 5ML OS PRN; +PHENYLEPHRINE 2.5% OPHTH SOL 2ML OS SCH; +TROPICAMIDE 1% OPHTH SOLN 15ML OS SCH
[2022-11-11] MEDS ORDERED: MIDAZOLAM INJ 2MG/2ML VIAL (J2250 PER 1MG) As Ordered ONE (09:10)
[2022-11-11] MEDS ORDERED: fentaNYL 100 MCG/2 ML INJECTION As Ordered ONE (09:10)
[2022-11-11 09:28] VITALS: BP 142/77
== END 2022-11-11 13:20 | disposition home or self-care (01) ==
LOC: M SDC 07:30
PROVIDERS: ATTEND Ophthalmology
DX: H25.12 Age-related nuclear cataract, left eye (principal); H57.03 Miosis; E78.5 Hyperlipidemia, unspecified; E10.9 Type 1 diabetes mellitus without complications; K21.9 Gastro-esophageal reflux disease without esophagitis; M19.90 Unspecified osteoarthritis, unspecified site; F41.9 Anxiety disorder, unspecified; F32.A Depression, unspecified; N40.0 Benign prostatic hyperplasia without lower urinary tract symptoms; I51.9 Heart disease, unspecified; Z86.711 Personal history of pulmonary embolism; Z86.718 Personal history of other venous thrombosis and embolism; Z79.01 Long term (current) use of anticoagulants; Z79.4 Long term (current) use of insulin; Z79.82 Long term (current) use of aspirin; Z79.84 Long term (current) use of oral hypoglycemic drugs; Z79.899 Other long term (current) drug therapy
CPT/HCPCS: 66982; J0697; J2250; J3010; V2632

== ENCOUNTER → 2023-02-24 | Outpatient (REF) | payer MEDICARE, MEDICAID ==
[~2023-02-24] MED LIST changes: -BSS IRRIG/VANCO(10MG)/TOBRA(5MG)/EPINEPH(1:1000-0.5CC)500ML BAG-ORONLY IR ONE; -CEFUROXIME 1MG/0.1ML INTRACAMERAL INJ As Ordered ONE; -CYCLOPENTOLATE 1% OPHTH SOLN 2ML BTL OS SCH; +INSU100I6 SC; -LEVE1INJ5 SC; -LIDOCAINE 1% 1ML PF SYRINGE (OR EYE CASES) As Ordered ONE; -LIDOCAINE 3.5 % 1ML OPHTH TOPICAL GEL OU ONE; -OFLOXACIN 0.3 % (OCUFLOX) OPTH SOL 5ML OS ONE; -PHENYLEPHRINE 10% OPHTH SOL 5ML OS PRN; -PHENYLEPHRINE 2.5% OPHTH SOL 2ML OS SCH; -TROPICAMIDE 1% OPHTH SOLN 15ML OS SCH
== END ==
PROVIDERS: ATTEND Family Medicine
DX: R09.89 Other specified symptoms and signs involving the circulatory and respiratory systems (principal); Z20.822 Contact with and (suspected) exposure to COVID-19

== ENCOUNTER → 2023-03-12 | Outpatient (REF) | payer MEDICARE, MEDICAID ==
[2023-03-12 13:25] LABS: HEMATOCRIT 45.9 % (42.0-52.0); HEMOGLOBIN 14.6 g/dl (13.5-17.5); MEAN CORPUSCULAR HEMOGLOBIN 29.3 pg (27.0-33.0); MEAN CORPUSCULAR HGB CONC 31.8 g/dl (32.0-36.5); PLATELET COUNT, AUTOMATED 261 10^3/uL (150-450); RED BLOOD COUNT 4.99 10^6/uL (4.30-6.10); WHITE BLOOD COUNT 8.6 10^3/uL (4.0-10.0)
[2023-03-12 14:02] LABS: ALBUMIN 3.4 G/DL (3.2-5.2); ALKALINE PHOSPHATASE 61 U/L (46-116); ALT/SGPT 23 U/L (7.0-40); AST/SGOT 18 U/L (<34); BILIRUBIN,TOTAL 0.3 MG/DL (0.3-1.2); BLOOD UREA NITROGEN 25 MG/DL (9-23); CALCIUM LEVEL 9.3 MG/DL (8.3-10.6); CARBON DIOXIDE LEVEL 27 MMOL/L (20-31); CHLORIDE LEVEL 103 MMOL/L (98-107); CHOLESTEROL LEVEL 136 MG/DL (<200); CHOLESTEROL RISK RATIO 4.18 (<5); CREATININE FOR GFR 1.18 MG/DL (0.70-1.30); FOLATE 14.04 NG/ML (>5.4); GLOMERULAR FILTRATION RATE > 60.0 (>42); GLUCOSE, FASTING 202 MG/DL (74-106); HDL CHOLESTEROL 32.5 MG/DL (>40); LDL CHOLESTEROL 65.9 MG/DL (<100); NON-HDL-C 103.5 MG/DL; POTASSIUM SERUM 4.3 MMOL/L (3.5-5.1); SODIUM LEVEL 140 MMOL/L (136-145); THYROID STIMULATING HORMONE 0.923 uIU/ML (0.55-4.78); TOTAL 25(OH) VITAMIN D 47.3 NG/ML (20.0-100.0); TOTAL PROTEIN 6.9 G/DL (5.7-8.2); TRIGLYCERIDES LEVEL 188 MG/DL (<150); VITAMIN B12 LEVEL 408 PG/ML (211-911)
[2023-03-12 15:48] LABS: HEMOGLOBIN A1c 8.4 % (4.0-6.0)
== END ==
LOC: M SFHCADAM 11:01
PROVIDERS: ATTEND Family Medicine
DX: E11.621 Type 2 diabetes mellitus with foot ulcer (principal); E11.40 Type 2 diabetes mellitus with diabetic neuropathy, unspecified; E78.2 Mixed hyperlipidemia; I82.501 Chronic embolism and thrombosis of unspecified deep veins of right lower extremity; E55.9 Vitamin D deficiency, unspecified; F03.90 Unspecified dementia, unspecified severity, without behavioral disturbance, psychotic disturbance, mood disturbance, and anxiety; Z79.899 Other long term (current) drug therapy

== ENCOUNTER 2023-07-23 11:18 | Emergency (ER) | payer MEDICARE, MEDICAID ==
[~2023-07-23] VITALS: Ht 175.3 cm; Wt 104.5 kg
[2023-07-23 13:19] LABS: BASO # 0.1 10^3/uL (0.0-0.2); BASO % 0.6 % (0.0-1.0); EOS # 0.2 10^3/uL (0.0-0.5); EOS % 2.8 % (0.0-3.0); HEMATOCRIT 44.1 % (42.0-52.0); HEMOGLOBIN 14.1 g/dl (13.5-17.5); LYMPH # 1.6 10^3/uL (1.5-5.0); LYMPH % 18.9 % (24.0-44.0); MEAN CORPUSCULAR HEMOGLOBIN 28.8 pg (27.0-33.0); MONO # 0.6 10^3/uL (0.0-0.8); MONO % 7.3 % (2.0-8.0); NEUTROPHILS # 6.1 10^3/uL (1.5-8.5); NEUTROPHILS % 69.9 % (36.0-66.0); PLATELET COUNT, AUTOMATED 251 10^3/uL (150-450); WHITE BLOOD COUNT 8.6 10^3/uL (4.0-10.0)
[2023-07-23] MEDS ORDERED: NS 500 ML IV ONE (13:40)
[2023-07-23 13:43] LABS: ALBUMIN 3.3 G/DL (3.2-5.2); ALKALINE PHOSPHATASE 52 U/L (46-116); ALT/SGPT 24 U/L (7.0-40); AST/SGOT 25 U/L (<34); BILIRUBIN,DIRECT < 0.1 MG/DL (<0.4); BILIRUBIN,TOTAL 0.2 MG/DL (0.3-1.2); BLOOD UREA NITROGEN 25 MG/DL (9-23); CALCIUM LEVEL 8.6 MG/DL (8.3-10.6); CARBON DIOXIDE LEVEL 28 MMOL/L (20-31); CHLORIDE LEVEL 104 MMOL/L (98-107); CK-MB VALUE MASS < 1.0 NG/ML (<3.6); CREATININE FOR GFR 1.11 MG/DL (0.70-1.30); GLOMERULAR FILTRATION RATE > 60.0 (>42); GLUCOSE, FASTING 71 MG/DL (74-106); POTASSIUM SERUM 4.7 MMOL/L (3.5-5.1); SODIUM LEVEL 140 MMOL/L (136-145); TOTAL PROTEIN 6.8 G/DL (5.7-8.2)
[2023-07-23 13:44] LABS: THYROID STIMULATING HORMONE 1.708 uIU/ML (0.55-4.78)
[2023-07-23 13:49] LABS: CPK CREATINE PHOSPHOKINASE 63 U/L (46-171); MB/CK RELATIVE INDEX 1.58 (< OR =4)
[2023-07-23 13:55] LABS: RSV AMPLIFICATION NEGATIVE (NEGATIVE)
[2023-07-23 14:49] LABS: CK-MB VALUE MASS < 1.0 NG/ML (<3.6)
[2023-07-23 14:54] LABS: CPK CREATINE PHOSPHOKINASE 54 U/L (46-171); MB/CK RELATIVE INDEX 1.85 (< OR =4)
[2023-07-23 16:32] LABS: CK-MB VALUE MASS < 1.0 NG/ML (<3.6)
[2023-07-23 16:40] LABS: CPK CREATINE PHOSPHOKINASE 59 U/L (46-171); MB/CK RELATIVE INDEX 1.69 (< OR =4)
[2023-07-23 17:03] VITALS: O2SAT 94
[2023-07-23 17:06] VITALS: BP 151/70; TEMP 98.4
== END 2023-07-23 17:42 | disposition home or self-care (01) ==
LOC: EDBD 11:18 → M ED 11:18
DX: R42 Dizziness and giddiness (principal); I45.10 Unspecified right bundle-branch block; I44.0 Atrioventricular block, first degree; I49.3 Ventricular premature depolarization; I45.81 Long QT syndrome; E11.9 Type 2 diabetes mellitus without complications; K21.9 Gastro-esophageal reflux disease without esophagitis; E78.5 Hyperlipidemia, unspecified; E66.9 Obesity, unspecified; Z86.718 Personal history of other venous thrombosis and embolism; Z87.891 Personal history of nicotine dependence; Z79.4 Long term (current) use of insulin; Z79.83 Long term (current) use of bisphosphonates; Z79.02 Long term (current) use of antithrombotics/antiplatelets; Z79.01 Long term (current) use of anticoagulants; Z79.899 Other long term (current) drug therapy

== ENCOUNTER → 2023-09-07 | Outpatient (REF) | payer MEDICARE, MEDICAID ==
[~2023-09-07] MED LIST changes: +CEFD300C PO; +ZITHTAB PO
[2023-09-08 11:05] LABS: APPEARANCE, URINE CLEAR (CLEAR); BACTERIA, URINE AUTO NEGATIVE (NEGATIVE); BILIRUBIN, URINE AUTO NEGATIVE (NEGATIVE); BLOOD, URINE BLOOD NEGATIVE (NEGATIVE); COLOR, URINE STRAW (YELLOW); GLUCOSE, URINE (UA) AUTO 3+ mg/dL (NEGATIVE); KETONE, URINE AUTO NEGATIVE (NEGATIVE); LEUKOCYTE ESTERASE, URINE AUTO TRACE (NEGATIVE); NITRITE, URINE AUTO NEGATIVE (NEGATIVE); PROTEIN, URINE AUTO 1+ mg/dL (NEGATIVE); RBC, URINE AUTO 1 /HPF (0-3); SPECIFIC GRAVITY URINE AUTO 1.014 (1.002-1.035); SQUAMOUS EPITHELIAL CELL UR AU 0 /HPF (0-6); UROBILINOGEN, URINE AUTO 0.2 mg/dL (0.0-2.0); WBC, URINE AUTO 7 /HPF (0-3)
== END ==
PROVIDERS: ATTEND Physician Assistant
DX: R30.0 Dysuria (principal)

== ENCOUNTER 2023-09-10 12:22 | Emergency (ER) | payer MEDICARE, MEDICAID ==
[2023-09-10 13:39] LABS: BASO % 0.5 % (0.0-1.0); EOS # 0.2 10^3/uL (0.0-0.5); EOS % 2.4 % (0.0-3.0); HEMATOCRIT 45.9 % (42.0-52.0); HEMOGLOBIN 14.8 g/dl (13.5-17.5); LYMPH # 1.1 10^3/uL (1.5-5.0); LYMPH % 14.7 % (24.0-44.0); MEAN CORPUSCULAR HEMOGLOBIN 28.6 pg (27.0-33.0); MEAN CORPUSCULAR HGB CONC 32.2 g/dl (32.0-36.5); MEAN CORPUSCULAR VOLUME 88.8 fl (80.0-96.0); MONO # 0.5 10^3/uL (0.0-0.8); MONO % 6.8 % (2.0-8.0); NEUTROPHILS # 5.5 10^3/uL (1.5-8.5); NEUTROPHILS % 75.2 % (36.0-66.0); PLATELET COUNT, AUTOMATED 228 10^3/uL (150-450); RED BLOOD COUNT 5.17 10^6/uL (4.30-6.10); WHITE BLOOD COUNT 7.4 10^3/uL (4.0-10.0)
[2023-09-10 14:04] LABS: ALBUMIN 3.3 G/DL (3.2-5.2); ALKALINE PHOSPHATASE 47 U/L (46-116); ALT/SGPT 20 U/L (7.0-40); AST/SGOT 34 U/L (<34); BILIRUBIN,DIRECT < 0.1 MG/DL (<0.4); BILIRUBIN,TOTAL 0.3 MG/DL (0.3-1.2); BLOOD UREA NITROGEN 22 MG/DL (9-23); CALCIUM LEVEL 8.6 MG/DL (8.3-10.6); CARBON DIOXIDE LEVEL 28 MMOL/L (20-31); CHLORIDE LEVEL 105 MMOL/L (98-107); CK-MB VALUE MASS < 1.0 NG/ML (<3.6); GLOMERULAR FILTRATION RATE > 60.0 (>42); GLUCOSE, FASTING 81 MG/DL (74-106); POTASSIUM SERUM 4.7 MMOL/L (3.5-5.1); SODIUM LEVEL 142 MMOL/L (136-145); TOTAL PROTEIN 6.4 G/DL (5.7-8.2)
[2023-09-10 14:15] LABS: PROCALCITONIN 0.11 ng/ml
[2023-09-10 14:19] LABS: CPK CREATINE PHOSPHOKINASE 79 U/L (46-171); MB/CK RELATIVE INDEX 1.26 (< OR =4)
[2023-09-10 15:14] LABS: CK-MB VALUE MASS < 1.0 NG/ML (<3.6)
[2023-09-10 15:18] LABS: CPK CREATINE PHOSPHOKINASE 72 U/L (46-171); MB/CK RELATIVE INDEX 1.38 (< OR =4)
[2023-09-10 15:30] VITALS: BP 147/69; TEMP 96.5; O2SAT 96
== END 2023-09-10 16:12 | disposition home or self-care (01) ==
LOC: EDBD 12:22 → M ED 12:22
DX: R53.1 Weakness (principal); E11.9 Type 2 diabetes mellitus without complications; I10 Essential (primary) hypertension; E78.5 Hyperlipidemia, unspecified; K21.9 Gastro-esophageal reflux disease without esophagitis; N40.0 Benign prostatic hyperplasia without lower urinary tract symptoms; F03.90 Unspecified dementia, unspecified severity, without behavioral disturbance, psychotic disturbance, mood disturbance, and anxiety; Z86.718 Personal history of other venous thrombosis and embolism; D68.51 Activated protein C resistance; Z79.899 Other long term (current) drug therapy; Z79.4 Long term (current) use of insulin; Z79.82 Long term (current) use of aspirin; Z79.01 Long term (current) use of anticoagulants

== ENCOUNTER → 2023-09-22 | Outpatient (REF) | payer MEDICARE, MEDICAID ==
[2023-09-22 12:12] LABS: THYROXINE (T4) 8.6 UG/DL (4.5-10.9)
[2023-09-22 12:14] LABS: BLOOD UREA NITROGEN 27 MG/DL (9-23); CALCIUM LEVEL 8.8 MG/DL (8.3-10.6); CARBON DIOXIDE LEVEL 29 MMOL/L (20-31); CHLORIDE LEVEL 103 MMOL/L (98-107); CREATININE FOR GFR 1.15 MG/DL (0.70-1.30); GLOMERULAR FILTRATION RATE > 60.0 (>42); GLUCOSE, FASTING 43 MG/DL (74-106); POTASSIUM SERUM 4.1 MMOL/L (3.5-5.1); SODIUM LEVEL 141 MMOL/L (136-145); THYROID STIMULATING HORMONE 1.222 uIU/ML (0.55-4.78)
[2023-09-22 12:18] LABS: HEMOGLOBIN A1c 6.6 % (4.0-6.0)
== END ==
PROVIDERS: ATTEND Physician Assistant
DX: E11.40 Type 2 diabetes mellitus with diabetic neuropathy, unspecified (principal)

== ENCOUNTER → 2023-12-24 | Outpatient (REF) | payer MEDICARE, MEDICAID ==
[2023-12-24 09:43] LABS: ALBUMIN 3.4 G/DL (3.2-5.2); ALKALINE PHOSPHATASE 61 U/L (46-116); ALT/SGPT 20 U/L (7.0-40); AST/SGOT 15 U/L (<34); BILIRUBIN,TOTAL 0.4 MG/DL (0.3-1.2); BLOOD UREA NITROGEN 26 MG/DL (9-23); CALCIUM LEVEL 9.4 MG/DL (8.3-10.6); CARBON DIOXIDE LEVEL 30 MMOL/L (20-31); CHLORIDE LEVEL 106 MMOL/L (98-107); CREATININE FOR GFR 1.22 MG/DL (0.70-1.30); GLOMERULAR FILTRATION RATE > 60.0 (>42); GLUCOSE, FASTING 167 MG/DL (74-106); POTASSIUM SERUM 4.2 MMOL/L (3.5-5.1); SODIUM LEVEL 143 MMOL/L (136-145); TOTAL PROTEIN 6.8 G/DL (5.7-8.2)
[2023-12-24 09:47] LABS: HEMOGLOBIN A1c 8.3 % (4.0-6.0)
== END ==
PROVIDERS: ATTEND Physician Assistant
DX: E11.621 Type 2 diabetes mellitus with foot ulcer (principal)

== ENCOUNTER → 2024-02-09 | Outpatient (REF) | payer MEDICARE, MEDICAID | LOC: M SFHCADAM 10:30 | PROVIDERS: ATTEND Physician Assistant | DX: E11.41 Type 2 diabetes mellitus with diabetic mononeuropathy (principal); Z12.5 Encounter for screening for malignant neoplasm of prostate ==

== ENCOUNTER → 2024-03-23 | Outpatient (REF) | payer MEDICARE, MEDICAID ==
[2024-03-23 19:19] LABS: ALBUMIN 3.2 G/DL (3.2-5.2); ALKALINE PHOSPHATASE 67 U/L (46-116); ALT/SGPT 9 U/L (7.0-40); AST/SGOT 12 U/L (<34); BILIRUBIN,TOTAL 0.2 MG/DL (0.3-1.2); BLOOD UREA NITROGEN 29 MG/DL (9-23); CARBON DIOXIDE LEVEL 26 MMOL/L (20-31); CHLORIDE LEVEL 103 MMOL/L (98-107); CHOLESTEROL LEVEL 139 MG/DL (<200); CHOLESTEROL RISK RATIO 4.79 (<5); CREATININE FOR GFR 1.18 MG/DL (0.70-1.30); FOLATE 10.5 NG/ML (>5.4); GLOMERULAR FILTRATION RATE > 60.0 (>42); GLUCOSE, FASTING 229 MG/DL (74-106); LDL CHOLESTEROL 66.2 MG/DL (<100); POTASSIUM SERUM 4.3 MMOL/L (3.5-5.1); PSA SCREENING 0.39 NG/ML (< 4.00); SODIUM LEVEL 139 MMOL/L (136-145); TOTAL 25(OH) VITAMIN D 52.9 NG/ML (20.0-100.0); TOTAL PROTEIN 6.4 G/DL (5.7-8.2); TRIGLYCERIDES LEVEL 219 MG/DL (<150); VITAMIN B12 LEVEL 280 PG/ML (211-911)
[2024-03-23 19:26] LABS: HEMOGLOBIN A1c 8.1 % (4.0-6.0)
== END ==
LOC: M SFHCADAM 14:26
PROVIDERS: ATTEND Physician Assistant
DX: E11.41 Type 2 diabetes mellitus with diabetic mononeuropathy (principal); Z12.5 Encounter for screening for malignant neoplasm of prostate; Z79.899 Other long term (current) drug therapy
CPT/HCPCS: 80053; 80061; 82306; 82607; 82746; 83036; G0103

== ENCOUNTER → 2024-06-23 | Outpatient (REF) | payer MEDICARE, MEDICAID ==
[~2024-06-23] MED LIST changes: +COLA100C5 PO; +FIAS100I2 SC; +MUCI600T31 PO; +SEMA1PEN2 SQ; +SERT25TA85 PO; +[UNRECOGNIZED DRUG - OTHER] PO; +pepto bismol PO
[2024-06-23 14:22] LABS: BASO # 0.1 10^3/uL (0.0-0.2); BASO % 0.9 % (0.0-1.0); EOS # 0.3 10^3/uL (0.0-0.5); EOS % 3.1 % (0.0-3.0); HEMATOCRIT 43.7 % (42.0-52.0); HEMOGLOBIN 13.4 g/dl (13.5-17.5); LYMPH # 1.4 10^3/uL (1.5-5.0); LYMPH % 17.1 % (24.0-44.0); MEAN CORPUSCULAR HEMOGLOBIN 27.8 pg (27.0-33.0); MEAN CORPUSCULAR HGB CONC 30.7 g/dl (32.0-36.5); MEAN CORPUSCULAR VOLUME 90.7 fl (80.0-96.0); MONO # 0.6 10^3/uL (0.0-0.8); MONO % 7.5 % (2.0-8.0); NEUTROPHILS # 5.7 10^3/uL (1.5-8.5); NEUTROPHILS % 70.9 % (36.0-66.0); PLATELET COUNT, AUTOMATED 259 10^3/uL (150-450); RED BLOOD COUNT 4.82 10^6/uL (4.30-6.10)
[2024-06-23 14:33] LABS: HEMOGLOBIN A1c 8.8 % (4.0-6.0)
[2024-06-23 14:52] LABS: FOLATE 12.4 NG/ML (>5.4); VITAMIN B12 LEVEL 295 PG/ML (211-911)
[2024-06-23 14:54] LABS: THYROID STIMULATING HORMONE 0.909 uIU/ML (0.55-4.78)
[2024-06-23 14:55] LABS: ALBUMIN 3.4 G/DL (3.2-5.2); ALKALINE PHOSPHATASE 65 U/L (46-116); ALT/SGPT 16 U/L (7.0-40); AST/SGOT 10 U/L (<34); BILIRUBIN,TOTAL 0.4 MG/DL (0.3-1.2); BLOOD UREA NITROGEN 22 MG/DL (9-23); CARBON DIOXIDE LEVEL 30 MMOL/L (20-31); CHLORIDE LEVEL 106 MMOL/L (98-107); CHOLESTEROL LEVEL 158 MG/DL (<200); CHOLESTEROL RISK RATIO 5.33 (<5); CREATININE FOR GFR 1.23 MG/DL (0.70-1.30); FREE T4 1.15 NG/DL (0.89-1.76); GLOMERULAR FILTRATION RATE > 60.0 (>42); GLUCOSE, FASTING 261 MG/DL (74-106); HDL CHOLESTEROL 29.6 MG/DL (>40); NON-HDL-C 128.4 MG/DL; POTASSIUM SERUM 4.9 MMOL/L (3.5-5.1); SODIUM LEVEL 139 MMOL/L (136-145); TOTAL PROTEIN 6.6 G/DL (5.7-8.2); TRIGLYCERIDES LEVEL 177 MG/DL (<150)
== END ==
LOC: M SFHCADAM 10:21
PROVIDERS: ATTEND Physician Assistant
DX: E11.41 Type 2 diabetes mellitus with diabetic mononeuropathy (principal); E11.42 Type 2 diabetes mellitus with diabetic polyneuropathy; Z79.4 Long term (current) use of insulin; F32.0 Major depressive disorder, single episode, mild; E78.2 Mixed hyperlipidemia

== ENCOUNTER → 2024-06-30 | Outpatient (REF) | payer MEDICARE, MEDICAID | LOC: M SFHCADAM 07:16 | PROVIDERS: ATTEND Physician Assistant | DX: Z53.20 Procedure and treatment not carried out because of patient's decision for unspecified reasons (principal) ==

== ENCOUNTER 2024-07-05 12:16 | Day surgery (SDC) | payer MEDICARE, MEDICAID ==
[~2024-07-05] VITALS: Ht 180.3 cm; Wt 115.2 kg
[~2024-07-05 12:16] MED LIST changes: +MIDAZOLAM INJ 2MG/2ML VIAL As Ordered ONE; +PHENYLEPHRINE 10% OPHTH SOL 5ML OD PRN; +SEMA1PEN2 SC; -SEMA1PEN2 SQ; +fentaNYL 100 MCG/2 ML INJECTION As Ordered ONE
[2024-07-05] MEDS: ATROPINE SULFATE 1% OPHTH SOLN 2ML BTL OD SCH (12:48)
[2024-07-05] MEDS: TROPICAMIDE 1% OPHTH SOLN 15ML OD SCH (12:49)
[2024-07-05] MEDS: LIDOCAINE 3.5 % 1ML OPHTH TOPICAL GEL OU ONE (12:49)
[2024-07-05] MEDS: PHENYLEPHRINE 2.5% OPHTH SOL 2ML OD SCH (12:49)
[2024-07-05] MEDS: OFLOXACIN 0.3 % (OCUFLOX) OPTH SOL 5ML OD ONE (12:49)
[2024-07-05] MEDS: LIDOCAINE 1% SDV 5ML VIAL As Ordered ONE (14:30)
[2024-07-05] MEDS: CEFUROXIME 1MG/0.1ML INTRACAMERAL INJ As Ordered ONE (14:30)
[2024-07-05] MEDS: BSS IRRIG/VANCO(10MG)/TOBRA(5MG)/EPINEPH(1:1000-0.5CC)500ML BAG-ORONLY As Ordered ONE (14:31)
[2024-07-05 14:51] VITALS: BP 146/78; TEMP 98.1; O2SAT 96
== END 2024-07-05 15:13 | disposition home or self-care (01) ==
LOC: M SDC 12:16
PROVIDERS: ATTEND Ophthalmology
DX: H25.11 Age-related nuclear cataract, right eye (principal); H57.03 Miosis; I10 Essential (primary) hypertension; E78.5 Hyperlipidemia, unspecified; E66.9 Obesity, unspecified; E11.9 Type 2 diabetes mellitus without complications; N18.9 Chronic kidney disease, unspecified; K21.9 Gastro-esophageal reflux disease without esophagitis; N40.0 Benign prostatic hyperplasia without lower urinary tract symptoms; F41.9 Anxiety disorder, unspecified; F32.A Depression, unspecified; D68.51 Activated protein C resistance; Z79.01 Long term (current) use of anticoagulants; Z79.899 Other long term (current) drug therapy

== ENCOUNTER 2024-07-06 20:17 | Inpatient (IN) | payer MEDICARE, MEDICAID ==
[~2024-07-06] VITALS: Ht 182.9 cm; Wt 114.2 kg
[~2024-07-06 20:17] MED LIST changes: -MIDAZOLAM INJ 2MG/2ML VIAL As Ordered ONE; -PHENYLEPHRINE 10% OPHTH SOL 5ML OD PRN; -fentaNYL 100 MCG/2 ML INJECTION As Ordered ONE
[2024-07-06 21:09] LABS: BASO % 0.2 % (0.0-1.0); EOS % 0.3 % (0.0-3.0); HEMATOCRIT 41.3 % (42.0-52.0); HEMOGLOBIN 13.2 g/dl (13.5-17.5); LYMPH # 0.2 10^3/uL (1.5-5.0); LYMPH % 2.3 % (24.0-44.0); MEAN CORPUSCULAR HEMOGLOBIN 28.4 pg (27.0-33.0); MEAN CORPUSCULAR VOLUME 88.8 fl (80.0-96.0); MONO # 0.4 10^3/uL (0.0-0.8); MONO % 3.8 % (2.0-8.0); NEUTROPHILS # 9.8 10^3/uL (1.5-8.5); NEUTROPHILS % 92.8 % (36.0-66.0); PLATELET COUNT, AUTOMATED 209 10^3/uL (150-450); RED BLOOD COUNT 4.65 10^6/uL (4.30-6.10); WHITE BLOOD COUNT 10.5 10^3/uL (4.0-10.0)
[2024-07-06] MEDS: NS 1,000 ML IV ONE (21:13)
[2024-07-06] MEDS: NS 2,550 ML in IV 1 EA IV ONE (21:13)
[2024-07-06 21:33] LABS: CK-MB VALUE MASS < 1.0 NG/ML (<3.6)
[2024-07-06 21:34] LABS: CPK CREATINE PHOSPHOKINASE 61 U/L (46-171); MB/CK RELATIVE INDEX 1.63 (< OR =4)
[2024-07-06 21:42] LABS: ALKALINE PHOSPHATASE 51 U/L (46-116); ALT/SGPT 15 U/L (7.0-40); AST/SGOT 13 U/L (<34); BILIRUBIN,DIRECT 0.2 MG/DL (<0.4); BILIRUBIN,TOTAL 0.5 MG/DL (0.3-1.2); BLOOD UREA NITROGEN 25 MG/DL (9-23); CALCIUM LEVEL 7.8 MG/DL (8.3-10.6); CARBON DIOXIDE LEVEL 24 MMOL/L (20-31); CHLORIDE LEVEL 108 MMOL/L (98-107); CREATININE FOR GFR 1.18 MG/DL (0.70-1.30); GLOMERULAR FILTRATION RATE > 60.0 (>42); GLUCOSE, FASTING 180 MG/DL (74-106); POTASSIUM SERUM 4.1 MMOL/L (3.5-5.1); PROCALCITONIN 0.66 ng/ml; SODIUM LEVEL 139 MMOL/L (136-145); TOTAL PROTEIN 6.1 G/DL (5.7-8.2)
[2024-07-06] MEDS: PIPERACILLIN/TAZOBACTAM SOD 4.5 GM in D5W MINI-BAG PLUS 50 ML IV ONE (21:48)
[2024-07-06] MEDS: ACETAMINOPHEN TAB 650MG DOSE (2X325MG) PO ONE (21:48)
[2024-07-06 21:51] LABS: VENOUS HCO3 22.4 MMOL/L (23.0-27.0); VENOUS O2 SATURATION 94.4 % (60.0-80.0); VENOUS PH 7.399 UNITS (7.330-7.430); VENOUS STANDARD HCO3 22.7 MMOL/L; VENOUS TOTAL CO2 23.5 MMOL/L (24.0-28.0)
[2024-07-06 22:08] LABS: INR 1.26; PARTIAL THROMBOPLASTIN TIME 26.3 SECONDS (24.8-34.2); PROTHROMBIN TIME 15.4 SECONDS (12.5-14.5)
[2024-07-06 22:13] LABS: CK-MB VALUE MASS < 1.0 NG/ML (<3.6)
[2024-07-06 22:22] LABS: CPK CREATINE PHOSPHOKINASE 57 U/L (46-171); MB/CK RELATIVE INDEX 1.75 (< OR =4)
[2024-07-06] MEDS ORDERED: ISOVUE-370 76% 100ML VIAL As Ordered ONE (22:23)
[2024-07-07] MEDS ORDERED: GLUCOSE 4 GM CHEW PO PRN (01:40)
[2024-07-07] MEDS ORDERED: DEXTROSE 50% 50ML SYRINGE IV PRN (01:40)
[2024-07-07] MEDS ORDERED: GLUCAGON INJ 1MG VIAL SC PRN (01:40)
[2024-07-07] MEDS ORDERED: ACETAMINOPHEN TAB 650MG DOSE (2X325MG) PO PRN (01:40)
[2024-07-07] MEDS ORDERED: NORCO, ANEXSIA 5/325MG TABLET (HYDROcodone/ACETAMINOPHEN) PO PRN (02:45)
[2024-07-07] MEDS: PIPERACILLIN/TAZOBACTAM SOD 4.5 GM in D5W MINI-BAG PLUS 50 ML IV SCH (04:17)
[2024-07-07] MEDS ORDERED: PEPT262S PO (04:26)
[2024-07-07] MEDS ORDERED: AQUAOIN12 TOP (04:26)
[2024-07-07] MEDS ORDERED: ACET-907 PO (04:26)
[2024-07-07] MEDS ORDERED: CVS100LI4 PO (04:26)
[2024-07-07] MEDS ORDERED: B-12100021 PO (04:26)
[2024-07-07] MEDS ORDERED: NYST-13 EXT (04:26)
[2024-07-07] MEDS ORDERED: ANTI2TAB16 PO (04:26)
[2024-07-07] MEDS ORDERED: EMOLCRE EXT (04:26)
[2024-07-07] MEDS ORDERED: SITA50TAB PO (04:26)
[2024-07-07] MEDS ORDERED: INSU200I5 SC ×2 (04:26)
[2024-07-07] MEDS ORDERED: PREDOPD OD (04:26)
[2024-07-07] MEDS ORDERED: CIPR0.3S37 OD (04:26)
[2024-07-07] MEDS ORDERED: HOME MED LIST COMPLETE! XX SCH (04:30)
[2024-07-07 07:16] LABS: BASO % 0.2 % (0.0-1.0); EOS # 0.1 10^3/uL (0.0-0.5); EOS % 0.8 % (0.0-3.0); HEMATOCRIT 39.3 % (42.0-52.0); HEMOGLOBIN 12.4 g/dl (13.5-17.5); LYMPH # 0.6 10^3/uL (1.5-5.0); LYMPH % 6.5 % (24.0-44.0); MEAN CORPUSCULAR HEMOGLOBIN 28.1 pg (27.0-33.0); MEAN CORPUSCULAR HGB CONC 31.6 g/dl (32.0-36.5); MEAN CORPUSCULAR VOLUME 89.1 fl (80.0-96.0); MONO # 0.6 10^3/uL (0.0-0.8); MONO % 6.9 % (2.0-8.0); NEUTROPHILS # 7.3 10^3/uL (1.5-8.5); NEUTROPHILS % 84.9 % (36.0-66.0); PLATELET COUNT, AUTOMATED 199 10^3/uL (150-450); RED BLOOD COUNT 4.41 10^6/uL (4.30-6.10); WHITE BLOOD COUNT 8.6 10^3/uL (4.0-10.0)
[2024-07-07] MEDS: INSULIN LISPRO (NovoLOG) PER UNIT SC SCH ×4 (08:37→21:00)
[2024-07-07 08:48] LABS: ALBUMIN 2.9 G/DL (3.2-5.2); ALKALINE PHOSPHATASE 45 U/L (46-116); ALT/SGPT 20 U/L (7.0-40); AST/SGOT 17 U/L (<34); BILIRUBIN,TOTAL 0.4 MG/DL (0.3-1.2); BLOOD UREA NITROGEN 22 MG/DL (9-23); CALCIUM LEVEL 7.7 MG/DL (8.3-10.6); CARBON DIOXIDE LEVEL 25 MMOL/L (20-31); CHLORIDE LEVEL 109 MMOL/L (98-107); CREATININE FOR GFR 1.13 MG/DL (0.70-1.30); GLOMERULAR FILTRATION RATE > 60.0 (>42); GLUCOSE, FASTING 58 MG/DL (74-106); POTASSIUM SERUM 3.7 MMOL/L (3.5-5.1); SODIUM LEVEL 141 MMOL/L (136-145); TOTAL PROTEIN 5.9 G/DL (5.7-8.2)
[2024-07-07] MEDS: LEVEMIR (INSULIN DETEMIR) 1 UNITS/0.01ML SC SCH (09:00)
[2024-07-07] MEDS: APIXABAN 5 MG TAB (ELIQUIS) PO SCH (09:13)
[2024-07-07] MEDS: PANTOPRAZOLE 40MG VIAL IV SCH (09:14)
[2024-07-07] MEDS ORDERED: INSULIN LISPRO (NovoLOG) PER UNIT SC SCH ×2 (12:00→21:00)
[2024-07-07] MEDS ORDERED: DOCUSATE SODIUM 100MG CAPSULE PO PRN (13:20)
[2024-07-07] MEDS ORDERED: LOPERAMIDE 2 MG CAPLET PO PRN (13:20)
[2024-07-07] MEDS: SERTRALINE HCL 25 MG TABLET PO SCH (14:15)
[2024-07-07 14:48] VITALS: BP 138/77; TEMP 97.8; O2SAT 93
[2024-07-07] MEDS: cefTRIAXone SOD 2 GM in D5W MINI-BAG PLUS 50 ML IV SCH (15:43)
[2024-07-07] MEDS: ASPIRIN 81MG ENTERIC TABLET PO SCH (15:45)
[2024-07-07] MEDS: TAMSULOSIN 0.4 MG CAP PO SCH (15:45)
[2024-07-07] MEDS: FENOFIBRATE 145MG TABLET (TRICOR) PO SCH (16:17)
[2024-07-07] MEDS ORDERED: LEVEMIR (INSULIN DETEMIR) 1 UNITS/0.01ML SC SCH (17:30)
[2024-07-07 20:52] VITALS: BP 126/61; TEMP 97; O2SAT 95
[2024-07-07] MEDS: prednisoLONE ACET 1% OPHTH SUSP 5ML OD SCH (21:04)
[2024-07-07] MEDS: GABAPENTIN 100 MG CAP PO SCH (21:04)
[2024-07-07] MEDS: ATORVASTATIN 20 MG TAB PO SCH (21:04)
[2024-07-07] MEDS: CIPROFLOXACIN 0.3% OPHTH SOLN 2.5ML OD SCH (21:04)
[2024-07-07] MEDS: NYSTATIN CREAM 15GM EXT SCH (21:05)
[2024-07-07 23:59] VITALS: BP 107/56; TEMP 97.6; O2SAT 92
[2024-07-08 03:48] VITALS: BP 146/71; TEMP 97; O2SAT 94
[2024-07-08 04:00] VITALS: BP 146/71; TEMP 97; O2SAT 94
[2024-07-08 05:17] LABS: HEMATOCRIT 40.1 % (42.0-52.0); HEMOGLOBIN 12.9 g/dl (13.5-17.5); MEAN CORPUSCULAR HEMOGLOBIN 28.7 pg (27.0-33.0); MEAN CORPUSCULAR HGB CONC 32.2 g/dl (32.0-36.5); MEAN CORPUSCULAR VOLUME 89.1 fl (80.0-96.0); PLATELET COUNT, AUTOMATED 192 10^3/uL (150-450); WHITE BLOOD COUNT 6.9 10^3/uL (4.0-10.0)
[2024-07-08 05:45] LABS: ALBUMIN 2.7 G/DL (3.2-5.2); ALKALINE PHOSPHATASE 68 U/L (46-116); ALT/SGPT 18 U/L (7.0-40); AST/SGOT 17 U/L (<34); BILIRUBIN,TOTAL 0.2 MG/DL (0.3-1.2); BLOOD UREA NITROGEN 20 MG/DL (9-23); CALCIUM LEVEL 7.9 MG/DL (8.3-10.6); CARBON DIOXIDE LEVEL 26 MMOL/L (20-31); CHLORIDE LEVEL 109 MMOL/L (98-107); CREATININE FOR GFR 1.07 MG/DL (0.70-1.30); GLOMERULAR FILTRATION RATE > 60.0 (>42); GLUCOSE, FASTING 271 MG/DL (74-106); SODIUM LEVEL 140 MMOL/L (136-145); TOTAL PROTEIN 5.9 G/DL (5.7-8.2)
[2024-07-08 08:00] VITALS: BP 140/70; TEMP 97.1; O2SAT 94
[2024-07-08] MEDS ORDERED: FENOFIBRATE 145MG TABLET (TRICOR) PO SCH (09:00)
[2024-07-08] MEDS ORDERED: SERTRALINE HCL 25 MG TABLET PO SCH (09:00)
[2024-07-08] MEDS: LEVEMIR (INSULIN DETEMIR) 1 UNITS/0.01ML SC SCH ×2 (09:36→18:24)
[2024-07-08 11:53] VITALS: BP 111/57; TEMP 96.8; O2SAT 97
[2024-07-08 15:56] VITALS: BP 125/68; TEMP 97; O2SAT 95
[2024-07-08] MEDS ORDERED: LEVEMIR (INSULIN DETEMIR) 1 UNITS/0.01ML SC SCH (17:30)
[2024-07-08 20:23] VITALS: BP 129/62; TEMP 97; O2SAT 95
[2024-07-09] VITALS (7 sets, daily range): BP systolic 108–156; BP diastolic 57–80; TEMP 96.9–98.5; O2SAT 94–100
[2024-07-09 04:46] LABS: HEMATOCRIT 39.6 % (42.0-52.0); HEMOGLOBIN 12.4 g/dl (13.5-17.5); MEAN CORPUSCULAR HEMOGLOBIN 27.7 pg (27.0-33.0); MEAN CORPUSCULAR HGB CONC 31.3 g/dl (32.0-36.5); MEAN CORPUSCULAR VOLUME 88.6 fl (80.0-96.0); PLATELET COUNT, AUTOMATED 206 10^3/uL (150-450); RED BLOOD COUNT 4.47 10^6/uL (4.30-6.10); WHITE BLOOD COUNT 4.7 10^3/uL (4.0-10.0)
[2024-07-09 05:19] LABS: ALBUMIN 2.5 G/DL (3.2-5.2); ALKALINE PHOSPHATASE 58 U/L (46-116); ALT/SGPT 19 U/L (7.0-40); AST/SGOT 15 U/L (<34); BILIRUBIN,TOTAL 0.2 MG/DL (0.3-1.2); BLOOD UREA NITROGEN 21 MG/DL (9-23); CALCIUM LEVEL 7.6 MG/DL (8.3-10.6); CARBON DIOXIDE LEVEL 28 MMOL/L (20-31); CHLORIDE LEVEL 110 MMOL/L (98-107); CREATININE FOR GFR 0.95 MG/DL (0.70-1.30); GLOMERULAR FILTRATION RATE > 60.0 (>42); GLUCOSE, FASTING 185 MG/DL (74-106); POTASSIUM SERUM 3.5 MMOL/L (3.5-5.1); SODIUM LEVEL 140 MMOL/L (136-145); TOTAL PROTEIN 5.4 G/DL (5.7-8.2)
[2024-07-09] MEDS: LEVEMIR (INSULIN DETEMIR) 1 UNITS/0.01ML SC SCH (08:13)
[2024-07-09] MEDS: PANTOPRAZOLE 40MG TAB (PROTONIX) PO SCH (12:10)
[2024-07-09] MEDS: LACTOBACILLUS ACIDOPHILUS CAP (BACID) PO SCH (17:16)
[2024-07-10 03:40] VITALS: BP 114/56; TEMP 98.8; O2SAT 97
[2024-07-10 06:40] LABS: HEMATOCRIT 38.5 % (42.0-52.0); HEMOGLOBIN 12.1 g/dl (13.5-17.5); MEAN CORPUSCULAR HEMOGLOBIN 27.5 pg (27.0-33.0); MEAN CORPUSCULAR HGB CONC 31.4 g/dl (32.0-36.5); MEAN CORPUSCULAR VOLUME 87.5 fl (80.0-96.0); PLATELET COUNT, AUTOMATED 225 10^3/uL (150-450); WHITE BLOOD COUNT 4.8 10^3/uL (4.0-10.0)
[2024-07-10 07:06] LABS: ALBUMIN 2.6 G/DL (3.2-5.2); ALKALINE PHOSPHATASE 52 U/L (46-116); ALT/SGPT 19 U/L (7.0-40); AST/SGOT 15 U/L (<34); BILIRUBIN,TOTAL 0.3 MG/DL (0.3-1.2); BLOOD UREA NITROGEN 18 MG/DL (9-23); CALCIUM LEVEL 7.6 MG/DL (8.3-10.6); CARBON DIOXIDE LEVEL 27 MMOL/L (20-31); CHLORIDE LEVEL 110 MMOL/L (98-107); GLOMERULAR FILTRATION RATE > 60.0 (>42); GLUCOSE, FASTING 131 MG/DL (74-106); POTASSIUM SERUM 3.6 MMOL/L (3.5-5.1); SODIUM LEVEL 142 MMOL/L (136-145); TOTAL PROTEIN 5.4 G/DL (5.7-8.2)
[2024-07-10 08:18] VITALS: BP 160/80; TEMP 96.9; O2SAT 95
[2024-07-10] MEDS ORDERED: RISATAB3 PO (08:58)
[2024-07-10] MEDS ORDERED: FAMO40TA3 PO (08:58)
[2024-07-10 16:12] VITALS: BP 132/68; TEMP 96.5; O2SAT 93
[2024-07-10 20:00] VITALS: BP 173/82; TEMP 96.6; O2SAT 94
[2024-07-11 03:05] VITALS: BP 137/66; TEMP 97.4; O2SAT 97
[2024-07-11 05:58] LABS: HEMATOCRIT 40.1 % (42.0-52.0); HEMOGLOBIN 12.6 g/dl (13.5-17.5); MEAN CORPUSCULAR HEMOGLOBIN 27.8 pg (27.0-33.0); MEAN CORPUSCULAR HGB CONC 31.4 g/dl (32.0-36.5); MEAN CORPUSCULAR VOLUME 88.5 fl (80.0-96.0); PLATELET COUNT, AUTOMATED 221 10^3/uL (150-450); RED BLOOD COUNT 4.53 10^6/uL (4.30-6.10); WHITE BLOOD COUNT 5.7 10^3/uL (4.0-10.0)
[2024-07-11 06:14] LABS: ALBUMIN 2.7 G/DL (3.2-5.2); ALKALINE PHOSPHATASE 57 U/L (46-116); ALT/SGPT 19 U/L (7.0-40); AST/SGOT 15 U/L (<34); BILIRUBIN,TOTAL 0.2 MG/DL (0.3-1.2); BLOOD UREA NITROGEN 19 MG/DL (9-23); CALCIUM LEVEL 8.1 MG/DL (8.3-10.6); CARBON DIOXIDE LEVEL 27 MMOL/L (20-31); CHLORIDE LEVEL 110 MMOL/L (98-107); CREATININE FOR GFR 0.96 MG/DL (0.70-1.30); GLOMERULAR FILTRATION RATE > 60.0 (>42); GLUCOSE, FASTING 179 MG/DL (74-106); POTASSIUM SERUM 3.7 MMOL/L (3.5-5.1); SODIUM LEVEL 144 MMOL/L (136-145); TOTAL PROTEIN 5.6 G/DL (5.7-8.2)
[2024-07-11 08:12] VITALS: BP 153/74; TEMP 96.9; O2SAT 99
[2024-07-11] MEDS ORDERED: TAMSULOSIN 0.4 MG CAP PO SCH (21:00)
== END 2024-07-11 13:01 | DRG 392 ==
LOC: M ED 20:17 → EDBD 20:17 → M ED INP 07-07 01:39 → M PCU 07-07 14:50
PROVIDERS: ADMIT Internal Medicine; ATTEND Internal Medicine
DX: A08.11 Acute gastroenteropathy due to Norwalk agent (principal); D68.51 Activated protein C resistance; I12.9 Hypertensive chronic kidney disease with stage 1 through stage 4 chronic kidney disease, or unspecified chronic kidney disease; E78.5 Hyperlipidemia, unspecified; E66.9 Obesity, unspecified; K21.9 Gastro-esophageal reflux disease without esophagitis; N40.0 Benign prostatic hyperplasia without lower urinary tract symptoms; E11.22 Type 2 diabetes mellitus with diabetic chronic kidney disease; F41.9 Anxiety disorder, unspecified; F32.A Depression, unspecified; N18.9 Chronic kidney disease, unspecified; Z79.01 Long term (current) use of anticoagulants; Z79.899 Other long term (current) drug therapy; Z66 Do not resuscitate; Z86.718 Personal history of other venous thrombosis and embolism; M19.90 Unspecified osteoarthritis, unspecified site; Z89.429 Acquired absence of other toe(s), unspecified side; Z79.4 Long term (current) use of insulin; E86.0 Dehydration; I95.9 Hypotension, unspecified; E11.649 Type 2 diabetes mellitus with hypoglycemia without coma

== ENCOUNTER → 2024-11-08 | Outpatient (REF) | payer MEDICARE, MEDICAID ==
[~2024-11-08] MED LIST changes: +ACET-907 PO; +ANTI2TAB16 PO; +AQUAOIN12 TOP; +B-12100021 PO; +CIPR0.3S37 OD; +CVS100LI4 PO; +EMOLCRE EXT; +FAMO40TA3 PO; +INSU200I5 SC; +NYST-13 EXT; +PEPT262S PO; +PREDOPD OD; +RISATAB3 PO; +SITA50TAB PO
[2024-11-08 13:35] LABS: HEMOGLOBIN A1c 8.2 % (4.0-6.0)
[2024-11-08 13:54] LABS: ALBUMIN 3.4 G/DL (3.2-5.2); ALKALINE PHOSPHATASE 67 U/L (40-129); ALT/SGPT 20 U/L (7.0-40); AST/SGOT 13 U/L (<34); BILIRUBIN,TOTAL 0.2 MG/DL (0.3-1.2); BLOOD UREA NITROGEN 24 MG/DL (9-23); CALCIUM LEVEL 9.5 MG/DL (8.3-10.6); CARBON DIOXIDE LEVEL 25 MMOL/L (20-31); CHLORIDE LEVEL 109 MMOL/L (98-107); GLOMERULAR FILTRATION RATE > 60.0 (>42); GLUCOSE, FASTING 70 MG/DL (74-106); POTASSIUM SERUM 4.1 MMOL/L (3.5-5.1); SODIUM LEVEL 143 MMOL/L (136-145)
[2024-11-08 13:55] LABS: TOTAL 25(OH) VITAMIN D 52.5 NG/ML (20.0-100.0)
[2024-11-08 13:56] LABS: FOLATE 11.5 NG/ML (>5.4); VITAMIN B12 LEVEL 581 PG/ML (211-911)
== END ==
PROVIDERS: ATTEND Physician Assistant
DX: E11.42 Type 2 diabetes mellitus with diabetic polyneuropathy (principal); E66.01 Morbid (severe) obesity due to excess calories; Z68.36 Body mass index [BMI] 36.0-36.9, adult; E66.812 Obesity, class 2; I82.501 Chronic embolism and thrombosis of unspecified deep veins of right lower extremity; E55.9 Vitamin D deficiency, unspecified; Z28.21 Immunization not carried out because of patient refusal

== ENCOUNTER → 2024-12-05 | Outpatient (CLI) | payer MEDICARE, MEDICAID | LOC: M RAD 10:58 | PROVIDERS: ATTEND Physician Assistant | DX: E11.621 Type 2 diabetes mellitus with foot ulcer (principal); L97.521 Non-pressure chronic ulcer of other part of left foot limited to breakdown of skin ==

== ENCOUNTER → 2025-01-30 | Outpatient (REF) | payer MEDICARE, MEDICAID ==
[2025-01-30 15:29] LABS: MEAN CORPUSCULAR HEMOGLOBIN 27.4 pg (27.0-33.0); MEAN CORPUSCULAR HGB CONC 30.2 g/dl (32.0-36.5); MEAN CORPUSCULAR VOLUME 90.7 fl (80.0-96.0); PLATELET COUNT, AUTOMATED 293 10^3/uL (150-450); RED BLOOD COUNT 4.74 10^6/uL (4.30-6.10)
[2025-01-30 15:48] LABS: ALBUMIN 3.3 G/DL (3.2-5.2); ALKALINE PHOSPHATASE 59 U/L (40-129); ALT/SGPT 19 U/L (7.0-40); AST/SGOT 17 U/L (<34); BILIRUBIN,TOTAL 0.3 MG/DL (0.3-1.2); BLOOD UREA NITROGEN 25 MG/DL (9-23); CALCIUM LEVEL 8.8 MG/DL (8.3-10.6); CARBON DIOXIDE LEVEL 28 MMOL/L (20-31); CHLORIDE LEVEL 109 MMOL/L (98-107); CREATININE FOR GFR 1.13 MG/DL (0.70-1.30); GLOMERULAR FILTRATION RATE > 60.0 (>42); GLUCOSE, FASTING 79 MG/DL (74-106); POTASSIUM SERUM 4.1 MMOL/L (3.5-5.1); SODIUM LEVEL 144 MMOL/L (136-145); TOTAL PROTEIN 6.8 G/DL (5.7-8.2)
[2025-01-30 15:49] LABS: FREE T4 1.15 NG/DL (0.89-1.76)
== END ==
LOC: M LABDRWAD 13:05
PROVIDERS: ATTEND Physician Assistant
DX: E11.42 Type 2 diabetes mellitus with diabetic polyneuropathy (principal); E78.2 Mixed hyperlipidemia

== ENCOUNTER → 2025-11-14 | Outpatient (REF) | payer MEDICARE, MEDICAID ==
[~2025-11-14] MED LIST changes: -CVS100LI4 PO; -FLOM0.4C39 PO; +GUAI-147 PO; -NYST-13 EXT; +NYST0.1C EXT; +TAMS-18 PO
[2025-11-14 13:22] LABS: PLATELET COUNT, AUTOMATED 304 10^3/uL (150-450)
[2025-11-14 13:57] LABS: ALT/SGPT 18.0 U/L (7.0-40); AST/SGOT 20.0 U/L (<34); CALCIUM LEVEL 9.0 MG/DL (8.3-10.6); CARBON DIOXIDE LEVEL 27.0 MMOL/L (20-31); CHLORIDE LEVEL 105.0 MMOL/L (98-107); CREATININE FOR GFR 1.2 MG/DL (0.70-1.30); GLOMERULAR FILTRATION RATE 62.3 (>42); POTASSIUM SERUM 4.2 MMOL/L (3.5-5.1); SODIUM LEVEL 143.0 MMOL/L (136-145)
[2025-11-14 14:22] LABS: ESTIMATED AVERAGE GLUCOSE 183.0 MG/DL (60-110)
== END ==
PROVIDERS: ATTEND Physician Assistant
DX: E11.42 Type 2 diabetes mellitus with diabetic polyneuropathy (principal); Z79.4 Long term (current) use of insulin; I82.501 Chronic embolism and thrombosis of unspecified deep veins of right lower extremity; D68.51 Activated protein C resistance